=== PATIENT | female | born 1975 | race Caucasian/White ===

== ENCOUNTER 2016-08-03 09:35 | Emergency (ER) | payer OTHER ==
[~2016-08-03] VITALS: Ht 162.6 cm; Wt 83.5 kg
[2016-08-03] MEDS ORDERED: ALBU17IN INH (10:00)
[2016-08-03] MEDS ORDERED: IBUP600T26 PO (10:00)
[2016-08-03] MEDS ORDERED: CETI10TA PO (10:00)
[2016-08-03] MEDS ORDERED: PERCOCET 5MG/325MG TAB PO ONE (10:30)
[2016-08-03] MEDS ORDERED: IBUPROFEN 400 MG TAB PO ONE (10:30)
[2016-08-03] MEDS ORDERED: ONDANSETRON 4 MG ORAL DISINTEGRATING TAB (S0181) PO ONE (11:00)
--- NOTE | 2016-08-03 11:23 | REP ---
Clinical: Trauma. Technique: AP, lateral, bilateral oblique views of the lumbosacral spine. Comparison: 08/07/2007. Findings: Alignment and lordosis maintained. There is no evidence for acute fracture / compression injury or subluxation. Moderate to advanced degenerative disc osteophyte complex at the L5-S1 level may be slightly progressive since prior examination. Impression: No acute fracture / compression injury or subluxation. Advanced focal degenerative changes at the L5-S1 level. Signed by Adeel Clemons MD 08/03/2016 11:14 A
[2016-08-03] MEDS ORDERED: AZIT250T3 PO (11:43)
[2016-08-03] MEDS ORDERED: IBUP800T23 PO (11:44)
[2016-08-03] MEDS ORDERED: PERC5TAB6 PO (11:45)
[2016-08-03] MEDS ORDERED: AZITHROMYCIN 250 MG TAB PO ONE (12:00)
[2016-08-03] MEDS ORDERED: BACT800T5 PO (12:04)
[2016-08-03 12:05] VITALS: BP 146/82
== END 2016-08-03 12:21 | disposition home or self-care (01) ==
LOC: M ED 10:15
DX: J02.0 Streptococcal pharyngitis (principal); M54.5 Low back pain; M51.87 Other intervertebral disc disorders, lumbosacral region; K04.7 Periapical abscess without sinus; K08.89 Other specified disorders of teeth and supporting structures; K08.539 Fractured dental restorative material, unspecified; F17.200 Nicotine dependence, unspecified, uncomplicated; Z88.5 Allergy status to narcotic agent; Z88.0 Allergy status to penicillin; Z88.8 Allergy status to other drugs, medicaments and biological substances

== ENCOUNTER 2016-10-22 13:09 | Emergency (ER) | payer MEDICAID, OTHER, SELFPAY ==
[~2016-10-22] VITALS: Ht 163.8 cm; Wt 77.6 kg
[~2016-10-22 13:09] MED LIST: ALBU17IN INH; AZIT250T3 PO; BACT800T5 PO; CETI10TA PO; IBUP600T26 PO; IBUP800T23 PO; PERC5TAB6 PO
[2016-10-22 13:10] VITALS: BP 136/80
[2016-10-22] MEDS ORDERED: CLEO300C2 PO (14:28)
[2016-10-22] MEDS ORDERED: TYLE325T5 PO (14:28)
[2016-10-22] MEDS ORDERED: NAPROXEN 250 MG TAB PO ONE (14:30)
[2016-10-22] MEDS ORDERED: CLINDAMYCIN 150 MG CAP PO ONE (14:30)
== END 2016-10-22 14:40 | disposition home or self-care (01) ==
LOC: M ED 14:03
DX: S30.0XXA Contusion of lower back and pelvis, initial encounter (principal); W07.XXXA Fall from chair, initial encounter; Y92.89 Other specified places as the place of occurrence of the external cause; Y93.89 Activity, other specified; Y99.9 Unspecified external cause status; K04.7 Periapical abscess without sinus; J45.909 Unspecified asthma, uncomplicated; F17.200 Nicotine dependence, unspecified, uncomplicated; Z90.49 Acquired absence of other specified parts of digestive tract; Z88.0 Allergy status to penicillin; Z88.5 Allergy status to narcotic agent; Z88.8 Allergy status to other drugs, medicaments and biological substances

== ENCOUNTER 2016-10-24 22:12 | Emergency (ER) | payer MEDICAID, OTHER, SELFPAY ==
[~2016-10-24] VITALS: Ht 162.6 cm; Wt 75.7 kg
[~2016-10-24 22:12] MED LIST changes: +CLEO300C2 PO; +TYLE325T5 PO
[2016-10-24 22:14] VITALS: BP 142/79
== END 2016-10-25 01:00 | disposition left against medical advice (07) ==
LOC: M ED 23:18
DX: Z53.29 Procedure and treatment not carried out because of patient's decision for other reasons (principal)

== ENCOUNTER → 2016-10-28 | Outpatient (CLI) | payer SELFPAY | LOC: M OUTALCOH 13:13 | PROVIDERS: ATTEND Psychiatry & Neurology Psychiatry | DX: Z13.9 Encounter for screening, unspecified (principal); F11.20 Opioid dependence, uncomplicated ==

== ENCOUNTER 2016-11-10 16:30 | Outpatient (RCR) | payer MEDICAID, SELFPAY ==
[~2016-11-10 16:30] MED LIST changes: +AZIT-12 PO; -AZIT250T3 PO; +IBUP-1022 PO; +IBUP1TAB7 PO; -IBUP600T26 PO; -IBUP800T23 PO; +PERC5TAB12 PO; -PERC5TAB6 PO
[2016-11-14] MEDS ORDERED: KEFL500C17 PO (16:08)
== END 2016-11-13 | disposition home or self-care (01) ==
LOC: M OUTALCOH 16:30
PROVIDERS: ATTEND Psychiatry & Neurology Psychiatry
DX: F11.20 Opioid dependence, uncomplicated (principal)

== ENCOUNTER 2016-11-14 15:53 | Emergency (ER) | payer MEDICAID, OTHER ==
[~2016-11-14] VITALS: Ht 162.6 cm; Wt 87.2 kg
[2016-11-14 15:53] VITALS: BP 140/82
[2016-11-14] MEDS ORDERED: KEFL500C17 PO (16:08)
== END 2016-11-14 16:19 | disposition home or self-care (01) ==
LOC: M ED 15:53
DX: K02.9 Dental caries, unspecified (principal); Z88.0 Allergy status to penicillin; Z88.5 Allergy status to narcotic agent; Z88.8 Allergy status to other drugs, medicaments and biological substances

== ENCOUNTER 2016-11-26 11:00 | Outpatient (RCR) | payer MEDICAID ==
[~2016-11-26 11:00] MED LIST changes: +KEFL500C17 PO
== END 2016-12-14 ==
LOC: M OUTALCOH 11:00
PROVIDERS: ATTEND Psychiatry & Neurology Psychiatry
DX: F11.20 Opioid dependence, uncomplicated (principal)

== ENCOUNTER 2017-01-28 18:25 | Emergency (ER) | payer MEDICAID, OTHER ==
[~2017-01-28] VITALS: Ht 162.6 cm; Wt 90.0 kg
[2017-01-28] MEDS ORDERED: SUBO8MIS SL (18:49)
[2017-01-28] MEDS ORDERED: LEXA5TAB13 PO (18:49)
[2017-01-28] MEDS ORDERED: GABA-282 PO (18:49)
[2017-01-28] MEDS ORDERED: AZITHROMYCIN 250 MG TAB PO ONE (20:30)
[2017-01-28] MEDS ORDERED: IPRATROPIUM 0.5MG/ALBUTEROL 2.5MG INH SOL UD 3ML (DUONEB)(J7620) NEB ONE (20:30)
[2017-01-28] MEDS ORDERED: predniSONE 20 MG TAB PO ONE (20:30)
[2017-01-28] MEDS ORDERED: ALBUTEROL SULFATE 2.5 MG/0.5 ML INH NEB SOLN NEB ONE (20:30)
[2017-01-28] MEDS ORDERED: ZITHTAB PO (21:30)
[2017-01-28] MEDS ORDERED: PRED10TA2 PO (21:30)
[2017-01-28] MEDS ORDERED: ALBU17IN INH (21:30)
[2017-01-28] MEDS ORDERED: ALBUTEROL 90 MCG/ACT 8GM HFA INHALER INH ONE (21:45)
[2017-01-28 22:07] VITALS: BP 135/72
--- NOTE | 2017-01-29 09:42 | REP ---
Clinical: Cough . Comparison: None . Technique: PA and lateral. Findings: The mediastinum and cardiac silhouette are normal. The lung muñoz are clear and without acute consolidation, effusion, or pneumothorax. The skeletal structures are intact and normal. Impression: 1. No acute cardiopulmonary process. Signed by Adeel Clemons MD 01/29/2017 08:10 A
== END 2017-01-28 22:09 | disposition home or self-care (01) ==
LOC: M ED 18:25
DX: J20.9 Acute bronchitis, unspecified (principal); J45.909 Unspecified asthma, uncomplicated; R07.89 Other chest pain; R05 Cough; K21.9 Gastro-esophageal reflux disease without esophagitis; F32.9 Major depressive disorder, single episode, unspecified; Z87.891 Personal history of nicotine dependence; Z79.899 Other long term (current) drug therapy; Z88.5 Allergy status to narcotic agent; Z88.0 Allergy status to penicillin; Z88.8 Allergy status to other drugs, medicaments and biological substances

== ENCOUNTER 2017-03-28 00:46 | Emergency (ER) | payer OTHER ==
[~2017-03-28] VITALS: Ht 162.6 cm; Wt 82.7 kg
[~2017-03-28 00:46] MED LIST changes: +GABA-282 PO; +LEXA5TAB13 PO; +PRED10TA2 PO; +SUBO8MIS SL; +ZITHTAB PO
[2017-03-28 00:54] VITALS: BP 131/75
[2017-03-28] MEDS ORDERED: ADDE15CA3 PO (01:00)
[2017-03-28] MEDS ORDERED: BACT800T5 PO (01:24)
[2017-03-28] MEDS ORDERED: LIDO1SOL7 MT (01:24)
[2017-03-28] MEDS ORDERED: LIDOCAINE VISCOUS 2% SOLN 15ML UDC MT ONE (01:30)
[2017-03-28] MEDS ORDERED: BACTRIM 160MG/800MG DS TAB PO ONE (01:30)
== END 2017-03-28 01:41 | disposition home or self-care (01) ==
LOC: M ED 00:46
DX: S02.5XXA Fracture of tooth (traumatic), initial encounter for closed fracture (principal); K04.7 Periapical abscess without sinus; K02.9 Dental caries, unspecified; K08.89 Other specified disorders of teeth and supporting structures; X58.XXXA Exposure to other specified factors, initial encounter; Y92.9 Unspecified place or not applicable; Y93.9 Activity, unspecified; Y99.9 Unspecified external cause status; K44.9 Diaphragmatic hernia without obstruction or gangrene; F17.200 Nicotine dependence, unspecified, uncomplicated; Z79.899 Other long term (current) drug therapy; Z88.5 Allergy status to narcotic agent; Z88.0 Allergy status to penicillin; Z88.8 Allergy status to other drugs, medicaments and biological substances

== ENCOUNTER → 2017-03-30 | Outpatient (REF) | payer OTHER, MEDICAID ==
[~2017-03-30] MED LIST changes: +ADDE15CA3 PO; +LIDO1SOL7 MT
[2017-03-30 19:50] LABS: BASO # 0.1 10^3/uL (0.0-0.2); BASO % 1.1 % (0.0-1.0); EOS # 0.6 10^3/uL (0.0-0.50); EOS % 7.3 % (0.0-3.0); IMMATURE GRANULOCYTE % 0.6 % (0-0); LYMPH # 2.8 10^3/uL (1.5-4.5); LYMPH % 34.3 % (24.0-44.0); MEAN CORPUSCULAR HEMOGLOBIN 30.3 pg (27.0-33.0); MEAN CORPUSCULAR VOLUME 97.7 fl (80.0-96.0); MONO # 0.8 10^3/uL (0.0-0.8); MONO % 9.7 % (0.0-5.0); NEUTROPHILS # 3.9 10^3/uL (1.8-7.7); PLATELET COUNT, AUTOMATED 267 10^3/uL (150-450); RED CELL DISTRIBUTION WIDTH 13.4 % (11.5-14.5); WHITE BLOOD COUNT 8.3 10^3/uL (4.0-10.0)
[2017-03-30 19:51] LABS: ALBUMIN 3.6 GM/DL (3.2-5.2); ALBUMIN/GLOBULIN RATIO 1.09 (1.00-1.93); ALKALINE PHOSPHATASE 63 U/L (45-117); ALT/SGPT 24 U/L (12-78); ANION GAP 3 MEQ/L (8-16); AST/SGOT 24 U/L (7-37); BILIRUBIN,TOTAL 0.2 MG/DL (0.2-1.0); BLOOD UREA NITROGEN 5 MG/DL (7-18); CALCIUM LEVEL 9.7 MG/DL (8.5-10.1); CARBON DIOXIDE LEVEL 33 MEQ/L (21-32); CHLORIDE LEVEL 102 MEQ/L (98-107); CHOLESTEROL LEVEL 244 MG/DL (<200); CREATININE FOR GFR 0.64 MG/DL (0.55-1.02); GLOMERULAR FILTRATION RATE > 60.0 (>58); GLUCOSE, FASTING 79 MG/DL (70-105); POTASSIUM SERUM 4.3 MEQ/L (3.5-5.1); SODIUM LEVEL 138 MEQ/L (136-145); TOTAL PROTEIN 6.9 GM/DL (6.4-8.2); TRIGLYCERIDES LEVEL 99 MG/DL (<150)
== END ==
LOC: M LAB REF 17:32
PROVIDERS: ATTEND Family Medicine Addiction Medicine
DX: F41.8 Other specified anxiety disorders (principal)

== ENCOUNTER 2017-03-31 19:29 | Emergency (ER) | payer MEDICAID, OTHER ==
[~2017-03-31] VITALS: Ht 162.6 cm; Wt 82.7 kg
[2017-03-31] MEDS ORDERED: PERCOCET 5MG/325MG TAB As Ordered ONE (22:45)
[2017-03-31] MEDS ORDERED: PERCOCET 5MG/325MG TAB PO ONE (22:45)
--- NOTE | 2017-03-31 23:30 | REPUSA ---
CLINICAL HISTORY: Edema. COMMENTS: Real time sonography with duplex doppler of the extremities bilaterally was performed with attention to the major deep venous structures. Evaluation reveals the common femoral, superficial femoral and popliteal veins bilaterally to be comp letely compressible without intraluminal thrombus. There is normal spontaneous phasic flow and augmen tation in all deep veins. The greater saphenous/common femoral vein junctions are patent bilaterally. IMPRESSION: No evidence of DVT in the lower extremities bilaterally. Thank you for your kind referral of this patient.
[2017-04-01] VITALS: BP 133/58
--- NOTE | 2017-04-01 08:18 | REP ---
Clinical: Cough and shortness of breath . Comparison: 01/28/2017 . Technique: PA and lateral. Findings: The mediastinum and cardiac silhouette are normal. The lung muñoz are clear and without acute consolidation, effusion, or pneumothorax. The skeletal structures are intact and normal. Impression: 1. No acute cardiopulmonary process. Signed by Adeel Clemons MD 04/01/2017 08:09 A
== END 2017-04-01 | disposition home or self-care (01) ==
LOC: M ED 19:29
DX: R60.0 Localized edema (principal); J45.909 Unspecified asthma, uncomplicated; F90.9 Attention-deficit hyperactivity disorder, unspecified type; F17.200 Nicotine dependence, unspecified, uncomplicated; Z79.899 Other long term (current) drug therapy; Z88.5 Allergy status to narcotic agent; Z88.0 Allergy status to penicillin; Z88.8 Allergy status to other drugs, medicaments and biological substances

== ENCOUNTER → 2017-06-25 | Outpatient (CLI) | payer OTHER ==
[2017-06-25 14:05] LABS: HEMATOCRIT 40.5 % (36.0-47.0); HEMOGLOBIN 13.6 g/dl (12.0-16.0); MEAN CORPUSCULAR HEMOGLOBIN 30.8 pg (27.0-33.0); MEAN CORPUSCULAR HGB CONC 33.6 g/dl (32.0-36.5); MEAN CORPUSCULAR VOLUME 91.6 fl (80.0-96.0); PLATELET COUNT, AUTOMATED 237 10^3/uL (150-450); RED BLOOD COUNT 4.42 10^6/uL (4.00-5.40); RED CELL DISTRIBUTION WIDTH 13.3 % (11.5-14.5); WHITE BLOOD COUNT 12.3 10^3/uL (4.0-10.0)
[2017-06-25 14:31] LABS: ALBUMIN 3.7 GM/DL (3.2-5.2); ALBUMIN/GLOBULIN RATIO 1.12 (1.00-1.93); ALKALINE PHOSPHATASE 68 U/L (45-117); ALT/SGPT 14 U/L (12-78); ANION GAP 6 MEQ/L (8-16); AST/SGOT 16 U/L (7-37); BILIRUBIN,TOTAL 0.5 MG/DL (0.2-1.0); BLOOD UREA NITROGEN 6 MG/DL (7-18); CALCIUM LEVEL 9.5 MG/DL (8.5-10.1); CARBON DIOXIDE LEVEL 32 MEQ/L (21-32); CHLORIDE LEVEL 102 MEQ/L (98-107); CREATININE FOR GFR 0.67 MG/DL (0.55-1.30); GLOMERULAR FILTRATION RATE > 60.0 (>58); GLUCOSE, FASTING 43 MG/DL (70-100); POTASSIUM SERUM 3.8 MEQ/L (3.5-5.1); SODIUM LEVEL 140 MEQ/L (136-145)
[2017-06-25 14:47] LABS: HEPATITIS B SURFACE ANTIGEN NEGATIVE (NEGATIVE)
[2017-06-25 15:16] LABS: HIV 1&2 SCREEN CENTAUR NEGATIVE (NEGATIVE)
[2017-06-25 16:01] LABS: CHLAMYDIA DNA AMPLIFICATION NEGATIVE (NEGATIVE); GC DNA AMPLIFICATION NEGATIVE (NEGATIVE)
== END ==
LOC: M LAB 13:10
DX: F11.20 Opioid dependence, uncomplicated (principal)
CPT/HCPCS: 93005

== ENCOUNTER 2018-01-02 13:30 | Emergency (ER) | payer OTHER ==
[2018-01-02] MEDS: MORPHINE 4 MG/ML 1ML VIAL/SYRINGE (J2270) IV ×2 (14:33)
[2018-01-02] MEDS: NS 1,000 ML IV ×2 (14:33)
[2018-01-02] MEDS: ONDANSETRON 4MG/2ML VIAL (J2405) IV ×2 (14:33)
[2018-01-02 14:50] LABS: HEMATOCRIT 43.4 % (36.0-47.0); HEMOGLOBIN 14.5 g/dl (12.0-15.5); MEAN CORPUSCULAR HGB CONC 33.4 g/dl (32.0-36.5); MEAN CORPUSCULAR VOLUME 89.9 fl (80.0-96.0); PLATELET COUNT, AUTOMATED 344 10^3/uL (150-450); RED BLOOD COUNT 4.83 10^6/uL (4.00-5.40); RED CELL DISTRIBUTION WIDTH 13.4 % (11.5-14.5); WHITE BLOOD COUNT 11.7 10^3/uL (4.0-10.0)
[2018-01-02 14:52] LABS: ADD MANUAL DIFFER YES; DIFF SLIDE NUMBER 137; POSITIVE DIFF POS FLAG
[2018-01-02 14:55] LABS: KETONE, URINE AUTO RFX NEGATIVE (NEGATIVE); LEUKOCYTE ESTERASE UR AUTO RFX NEGATIVE (NEGATIVE); MUCUS, URINE RFX SMALL (NEGATIVE); NITRITE, URINE AUTO RFX NEGATIVE (NEGATIVE); RBC, URINE AUTO RFX 1 /HPF (0-3); SPECIFIC GRAVITY UR AUTO RFX 1.009 (1.002-1.035); SQUAM EPITHELIAL CELL UR AURFX 0 /HPF (0-6); WBC, URINE AUTO RFX 1 /HPF (0-3)
[2018-01-02 15:11] LABS: ALBUMIN 4.2 GM/DL (3.2-5.2); ALBUMIN/GLOBULIN RATIO 1.14 (1.00-1.93); ALKALINE PHOSPHATASE 62 U/L (45-117); ALT/SGPT 22 U/L (12-78); ANION GAP 6 MEQ/L (8-16); AST/SGOT 15 U/L (7-37); BILIRUBIN,DIRECT 0.2 MG/DL (0.0-0.2); BILIRUBIN,TOTAL 0.7 MG/DL (0.2-1.0); BLOOD UREA NITROGEN 6 MG/DL (7-18); CALCIUM LEVEL 9.8 MG/DL (8.5-10.1); CARBON DIOXIDE LEVEL 31 MEQ/L (21-32); CHLORIDE LEVEL 103 MEQ/L (98-107); GLOMERULAR FILTRATION RATE > 60.0 (>58); GLUCOSE, FASTING 92 MG/DL (70-100); LIPASE 176 U/L (73-393); POTASSIUM SERUM 3.3 MEQ/L (3.5-5.1); SODIUM LEVEL 140 MEQ/L (136-145); TOTAL PROTEIN 7.9 GM/DL (6.4-8.2)
[2018-01-02] MEDS ORDERED: ISOVUE-370 76% 100ML VIAL (Q9967) As Ordered ×2 (15:16)
[2018-01-02 15:24] LABS: BASOPHILS 1 % (0-4); EOSINOPHILS 4 % (0-5); LYMPHOCYTES 40 % (16-52); MONOCYTES 7 % (0-8); NEUTROPHILS 48 % (35-75)
[2018-01-02 15:25] LABS: PLATELET ESTIMATE NORMAL (NORMAL)
[2018-01-02] MEDS: CIPROFLOXACIN 500 MG TAB PO ×2 (16:33)
[2018-01-02] MEDS: metroNIDAZOLE (FLAGYL) 500 MG TAB PO ×2 (16:33)
== END 2018-01-02 16:51 | disposition home or self-care (01) ==
LOC: M ED 13:30
DX: K52.9 Noninfective gastroenteritis and colitis, unspecified (principal); J45.909 Unspecified asthma, uncomplicated; K44.9 Diaphragmatic hernia without obstruction or gangrene; K21.9 Gastro-esophageal reflux disease without esophagitis; D64.9 Anemia, unspecified; F41.9 Anxiety disorder, unspecified; F32.9 Major depressive disorder, single episode, unspecified; F90.9 Attention-deficit hyperactivity disorder, unspecified type; Z72.0 Tobacco use; Z79.899 Other long term (current) drug therapy; Z88.5 Allergy status to narcotic agent; Z88.0 Allergy status to penicillin; Z88.8 Allergy status to other drugs, medicaments and biological substances
CPT/HCPCS: J2270

== ENCOUNTER 2018-06-16 12:07 | Emergency (ER) | payer MEDICAID, OTHER ==
[~2018-06-16] VITALS: Ht 154.9 cm; Wt 85.0 kg
[~2018-06-16 12:07] MED LIST changes: +CIPR-249 PO; +DICL75TA PO; +FLAG500T PO; -GABA-282 PO; +GABA-843 PO; +MIRA0.5T PO; +OXYC1TAB23 PO; +VYVA70CA3 PO; +ZOFR4TAB14 PO
[2018-06-16] MEDS ORDERED: TRAZ1TAB14 PO ×2 (12:16)
[2018-06-16] MEDS ORDERED: NORCO, ANEXSIA 5/325MG TABLET (HYDROcodone/ACETAMINOPHEN) PO ONE (13:30)
[2018-06-16] MEDS ORDERED: NORCOTAB PO (13:35)
[2018-06-16] MEDS ORDERED: MAGICMW SSP (13:36)
[2018-06-16 13:41] VITALS: BP 136/73
== END 2018-06-16 13:42 | disposition home or self-care (01) ==
LOC: M ED 12:07
DX: K04.7 Periapical abscess without sinus (principal); J45.909 Unspecified asthma, uncomplicated; F33.9 Major depressive disorder, recurrent, unspecified; F41.9 Anxiety disorder, unspecified; F90.9 Attention-deficit hyperactivity disorder, unspecified type; K21.9 Gastro-esophageal reflux disease without esophagitis; Z79.899 Other long term (current) drug therapy; Z88.0 Allergy status to penicillin; Z88.5 Allergy status to narcotic agent; Z88.8 Allergy status to other drugs, medicaments and biological substances; F17.210 Nicotine dependence, cigarettes, uncomplicated

== ENCOUNTER 2019-01-24 04:11 | Emergency (ER) | payer MEDICAID ==
[~2019-01-24] VITALS: Ht 162.6 cm; Wt 94.1 kg
[~2019-01-24 04:11] MED LIST changes: +HYDR-3715 PO; -LIDO1SOL7 MT; +LIDO1SOL8 MT; +MAGICMW SSP; +TRAZ1TAB14 PO
[2019-01-24] MEDS ORDERED: ONDANSETRON 4 MG ORAL DISINTEGRATING TAB (Q0162 PER 1MG) PO ONE (05:00)
[2019-01-24 05:05] LABS: BASO # 0.1 10^3/uL (0.0-0.2); BASO % 0.7 % (0.0-1.0); EOS # 0.2 10^3/uL (0.0-0.5); EOS % 2.8 % (0.0-3.0); HEMATOCRIT 38.5 % (36.0-47.0); HEMOGLOBIN 13.3 g/dl (12.0-15.5); LYMPH # 2.7 10^3/uL (1.5-5.0); LYMPH % 36.6 % (24.0-44.0); MEAN CORPUSCULAR HEMOGLOBIN 30.7 pg (27.0-33.0); MEAN CORPUSCULAR HGB CONC 34.5 g/dl (32.0-36.5); MEAN CORPUSCULAR VOLUME 88.9 fl (80.0-96.0); MONO # 0.6 10^3/uL (0.0-0.8); MONO % 7.6 % (0.0-5.0); NEUTROPHILS # 3.9 10^3/uL (1.5-8.5); PLATELET COUNT, AUTOMATED 238 10^3/uL (150-450); RED BLOOD COUNT 4.33 10^6/uL (4.00-5.40); WHITE BLOOD COUNT 7.5 10^3/uL (4.0-10.0)
[2019-01-24 05:10] LABS: APPEARANCE, URINE CLOUDY (CLEAR); BACTERIA, URINE AUTO 3+ (NEGATIVE); BILIRUBIN, URINE AUTO NEGATIVE (NEGATIVE); BLOOD, URINE BLOOD NEGATIVE (NEGATIVE); COLOR, URINE RED (YELLOW); GLUCOSE, URINE (UA) AUTO NEGATIVE (NEGATIVE); KETONE, URINE AUTO NEGATIVE (NEGATIVE); LEUKOCYTE ESTERASE, URINE AUTO 2+ (NEGATIVE); MUCUS, URINE SMALL (NEGATIVE); NITRITE, URINE AUTO NEGATIVE (NEGATIVE); PROTEIN, URINE AUTO NEGATIVE (NEGATIVE); RBC, URINE AUTO 7 /HPF (0-3); SPECIFIC GRAVITY URINE AUTO 1.015 (1.002-1.035); SQUAMOUS EPITHELIAL CELL UR AU 14 /HPF (0-6); UROBILINOGEN, URINE AUTO 0.2 mg/dL (0.0-2.0); WBC, URINE AUTO 16 /HPF (0-3)
[2019-01-24 05:16] LABS: ALBUMIN 3.8 GM/DL (3.2-5.2); ALT/SGPT 16 U/L (12-78); BILIRUBIN,DIRECT 0.1 MG/DL (0.0-0.2); BILIRUBIN,TOTAL 0.4 MG/DL (0.2-1.0); BLOOD UREA NITROGEN 15 MG/DL (7-18); CALCIUM LEVEL 9.2 MG/DL (8.5-10.1); CARBON DIOXIDE LEVEL 22 MEQ/L (21-32); CHLORIDE LEVEL 107 MEQ/L (98-107); CREATININE FOR GFR 0.84 MG/DL (0.55-1.30); GLOMERULAR FILTRATION RATE > 60.0 (>58); GLUCOSE, FASTING 114 MG/DL (70-100); LIPASE 81 U/L (73-393); POTASSIUM SERUM 3.4 MEQ/L (3.5-5.1); SODIUM LEVEL 140 MEQ/L (136-145)
[2019-01-24] MEDS ORDERED: BACTRIM 160MG/800MG DS TAB PO ONE (06:15)
[2019-01-24] MEDS ORDERED: KETOROLAC 30 MG/ML VIAL (J1885) IV ONE (06:15)
[2019-01-24] MEDS ORDERED: BACT800T5 PO (08:53)
--- NOTE | 2019-01-24 09:00 | REP ---
PELVIC SONOGRAPHY: HISTORY: Pain. Rule out torsion. Comparison CT study is from earlier this date. SONOGRAPHIC FINDINGS: Transabdominal scanning is performed. The patient declined transvaginal scanning. Visualized bladder davis are smooth. There is a small quantity of free fluid adjacent to the left ovary. Left ovary does not appear malpositioned. It is not enlarged. Left ovary dimensions are 3.3 x 2.7 x 2.2 cm. Calculated volume 10.3 mL. Resistive index by Doppler is 0.51. Doppler flow is present. Uterine dimensions are normal at 8.3 x 3.7 x 4.9 cm. Endometrial echo is 1.1 cm thick, centrally placed. The right ovary is also normal in position, size, and appearance with dimensions of 3.2 x 2.0 x 2.5 cm, calculated volume 8.9 mL, Doppler flow normal with resistive index 0.53. IMPRESSION: Small quantity of free fluid noted. Ovaries normal in position and appearance bilaterally. Normal uterus. Doppler flow is present in both ovaries. Electronically Signed by Greyson Winters MD 01/24/2019 09:12 A
--- NOTE | 2019-01-24 09:10 | REP ---
CT abdomen and pelvis without contrast: Repeat dictation: History: Right-sided colicky pain. Preliminary report is provided at time of exam by [facility]. Comparison study: January 02, 2018. CT findings: Preliminary digital facility coordinator radiograph shows clips in the right upper quadrant of the abdomen and two tubal ligation clamps in the right pelvis. There is gas and stool in the colon. The lung bases are clear on axial CT images. The liver and spleen are normal in size homogeneous in texture. No adrenal lesion is seen on either side. No abnormalities noted in the pancreas. Kidneys show no evidence of hydronephrosis or intrarenal calculus. There is evidence of an undigested tablet in the proximal small bowel. No small or large bowel dilation is seen. No obstructive lesion is seen. Normal appendix is seen in the right lower quadrant. The right tubal ligation clamp appears adjacent the right ovary in the right adnexa. No tubal ligation clamps visible in the left adnexa. This clamp appears to be adjacent to the tip of the cecum in the right lower quadrant having apparently migrated from the left adnexa where was is seen January 02, 2018. There is a small quantity of fluid in the cul-de-sac. No uterine abnormality is noted. The left ovary is difficult to visualize adjacent to the fluid. Urinary bladder is intact. There is no evidence of free intraperitoneal air. Bone window settings demonstrate fairly advanced degenerative disc disease at L5-S1 with diffuse disc bulging. Impression: Small quantity of free fluid in the cul-de-sac uncertain etiology. Normal appendix. Findings consistent with migrated tubal ligation clamp from the left pelvis in the right lower quadrant. This is not expected to be of any clinical consequence. Electronically Signed by Greyson Winters MD 01/24/2019 09:14 A
[2019-01-24 09:13] VITALS: BP 129/81
--- NOTE | 2019-01-31 12:59 | ED PDOC ---
Post-Departure Follow-Up eleonora lucia faxed formal report of ct abd/p for fu Karthik Packer MD Jan 31, 2019 12:59
== END 2019-01-24 09:16 | disposition home or self-care (01) ==
LOC: M ED 04:11
DX: N39.0 Urinary tract infection, site not specified (principal); F11.20 Opioid dependence, uncomplicated; F17.200 Nicotine dependence, unspecified, uncomplicated; Z79.51 Long term (current) use of inhaled steroids; Z79.899 Other long term (current) drug therapy; Z88.0 Allergy status to penicillin; Z88.5 Allergy status to narcotic agent; Z88.8 Allergy status to other drugs, medicaments and biological substances
CPT/HCPCS: 74176; 76856; 80048; 80076; 81001; 83690; 85025; 87088; 93976; 96374; 99283; J1885; Q0162

== ENCOUNTER 2019-02-19 14:01 | Emergency (ER) | payer MEDICAID ==
[~2019-02-19] VITALS: Ht 162.6 cm; Wt 95.2 kg
[2019-02-19] MEDS ORDERED: BUPR1TAB56 PO (14:24)
[2019-02-19] MEDS ORDERED: KETOROLAC 30 MG/ML VIAL (J1885) IV ONE (15:15)
[2019-02-19] MEDS ORDERED: ISOVUE-370 76% 100ML VIAL (Q9967) As Ordered ONE (16:32)
[2019-02-19 16:41] LABS: BASO # 0.1 10^3/uL (0.0-0.2); BASO % 0.5 % (0.0-1.0); EOS # 0.5 10^3/uL (0.0-0.5); HEMATOCRIT 38.7 % (36.0-47.0); HEMOGLOBIN 12.4 g/dl (12.0-15.5); LYMPH # 2.8 10^3/uL (1.5-5.0); LYMPH % 21.7 % (24.0-44.0); MEAN CORPUSCULAR HEMOGLOBIN 30.9 pg (27.0-33.0); MEAN CORPUSCULAR VOLUME 96.5 fl (80.0-96.0); MONO # 1.2 10^3/uL (0.0-0.8); MONO % 8.9 % (0.0-5.0); NEUTROPHILS # 8.3 10^3/uL (1.5-8.5); NEUTROPHILS % 64.4 % (36.0-66.0); PLATELET COUNT, AUTOMATED 206 10^3/uL (150-450); RED BLOOD COUNT 4.01 10^6/uL (4.00-5.40); WHITE BLOOD COUNT 12.9 10^3/uL (4.0-10.0)
[2019-02-19] MEDS ORDERED: CLINDAMYCIN 900 MG in IV 1 EA IV ONE (16:45)
[2019-02-19] MEDS ORDERED: ONDANSETRON 4 MG ORAL DISINTEGRATING TAB (Q0162 PER 1MG) PO ONE (17:30)
[2019-02-19] MEDS ORDERED: PERCOCET 5MG/325MG TAB PO ONE (17:30)
[2019-02-19] MEDS ORDERED: CLINDAMYCIN 150 MG CAP PO ONE (19:15)
[2019-02-19] MEDS ORDERED: OXYCODONE/APAP 5MG/325MG(BULK FOR ED) 1 TABLET PO ONE (19:15)
[2019-02-19] MEDS ORDERED: methylPREDNISolone INJ 125 MG/2 ML VIAL (J2930) IV ONE (19:15)
[2019-02-19] MEDS ORDERED: PRED20TA PO (19:16)
[2019-02-19] MEDS ORDERED: CLEO300C2 PO (19:16)
[2019-02-19] MEDS ORDERED: OXYC1TAB23 PO (19:18)
[2019-02-19 19:34] VITALS: BP 110/58
[2019-02-19] MEDS ORDERED: VENTAER INH (19:56)
--- NOTE | 2019-02-20 12:28 | REP ---
CT SOFT TISSUE NECK STUDY WITH IV CONTRAST: HISTORY: Left mandibular swelling. Preliminary report is provided at the time of exam by [facility]. CT CONTRAST DOSE: 75 mL of intravenous Isovue [address] FINDINGS: Preliminary workforce planner images are unremarkable. There is a moderate amount of soft tissue swelling about the left buccal and perimandibular region. No soft tissue abscess is appreciated. There is some thickening of the platysma in the submandibular region. No neck masses seen. Epiglottis and aryepiglottic folds are intact. No airway lesion is appreciated. Tonsillar and peritonsillar soft tissues are unremarkable. No intraorbital lesion is seen. There is mucosal thickening in the inferior aspect of the left maxillary sinus. There are multiple carious maxillary teeth. No bony mandibular lesion is appreciated. The lung apices are clear. IMPRESSION: Moderate soft tissue swelling and edema in the left buccal and mandibular region. No evidence of abscess seen. Electronically Signed by Greyson Winters MD 02/20/2019 03:05 P
== END 2019-02-19 20:19 | disposition home or self-care (01) ==
LOC: M ED 14:01
DX: K02.9 Dental caries, unspecified (principal); K04.7 Periapical abscess without sinus; R22.0 Localized swelling, mass and lump, head; K05.6 Periodontal disease, unspecified; K21.9 Gastro-esophageal reflux disease without esophagitis; J45.909 Unspecified asthma, uncomplicated; F17.200 Nicotine dependence, unspecified, uncomplicated; Z79.899 Other long term (current) drug therapy; Z88.0 Allergy status to penicillin; Z88.5 Allergy status to narcotic agent; Z88.8 Allergy status to other drugs, medicaments and biological substances
CPT/HCPCS: 70491; 80047; 85025; 96365; 96375; 99284; J1885; J2930; Q0162; Q9967

== ENCOUNTER → 2019-03-15 | Outpatient (CLI) | payer MEDICAID ==
[~2019-03-15] MED LIST changes: +BUPR1TAB56 PO; +PRED20TA PO; +VENTAER INH
[2019-03-15 16:27] LABS: HEMATOCRIT 42.7 % (36.0-47.0); HEMOGLOBIN 13.4 g/dl (12.0-15.5); MEAN CORPUSCULAR HEMOGLOBIN 30.2 pg (27.0-33.0); MEAN CORPUSCULAR HGB CONC 31.4 g/dl (32.0-36.5); MEAN CORPUSCULAR VOLUME 96.2 fl (80.0-96.0); PLATELET COUNT, AUTOMATED 263 10^3/uL (150-450); RED BLOOD COUNT 4.44 10^6/uL (4.00-5.40); WHITE BLOOD COUNT 7.9 10^3/uL (4.0-10.0)
[2019-03-15 16:51] LABS: ALBUMIN 3.3 GM/DL (3.2-5.2); ALT/SGPT 14 U/L (12-78); BILIRUBIN,TOTAL 0.4 MG/DL (0.2-1.0); BLOOD UREA NITROGEN 7 MG/DL (7-18); CALCIUM LEVEL 9.6 MG/DL (8.5-10.1); CARBON DIOXIDE LEVEL 32 MEQ/L (21-32); CHLORIDE LEVEL 104 MEQ/L (98-107); CREATININE FOR GFR 0.84 MG/DL (0.55-1.30); GLOMERULAR FILTRATION RATE > 60.0 (>58); GLUCOSE, FASTING 108 MG/DL (70-100); SODIUM LEVEL 140 MEQ/L (136-145); TOTAL PROTEIN 6.7 GM/DL (6.4-8.2)
[2019-03-15 17:35] LABS: HIV 1&2 SCREEN CENTAUR NEGATIVE (NEGATIVE)
[2019-03-15 19:43] LABS: HCG, SERUM QUALITATIVE NEGATIVE (NEGATIVE)
[2019-03-15 22:44] LABS: CHLAMYDIA DNA AMPLIFICATION NEGATIVE (NEGATIVE); GC DNA AMPLIFICATION NEGATIVE (NEGATIVE)
--- NOTE | 2019-03-15 22:50 | ECGEPIP ---
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
[2019-03-17 09:37] LABS: HEPATITIS B SURFACE ANTIGEN NEGATIVE (NEGATIVE)
== END ==
LOC: M LAB 14:55
PROVIDERS: ATTEND Family Medicine
DX: F11.20 Opioid dependence, uncomplicated (principal)

== ENCOUNTER 2019-09-18 13:51 | Emergency (ER) | payer MEDICAID, OTHER ==
[~2019-09-18] VITALS: Ht 162.6 cm; Wt 80.0 kg
[~2019-09-18 13:51] MED LIST changes: -LIDO1SOL8 MT; +LIDO2SOL17 MT
[2019-09-18] MEDS ORDERED: NS 1,000 ML IV ONE (14:45)
[2019-09-18] MEDS ORDERED: SUBO8MIS (14:47)
[2019-09-18 14:50] LABS: BASO # 0.1 10^3/uL (0.0-0.2); BASO % 0.7 % (0.0-1.0); EOS # 0.2 10^3/uL (0.0-0.5); EOS % 2.7 % (0.0-3.0); HEMATOCRIT 37.9 % (36.0-47.0); HEMOGLOBIN 12.3 g/dl (12.0-15.5); LYMPH # 2.7 10^3/uL (1.5-5.0); LYMPH % 31.6 % (24.0-44.0); MEAN CORPUSCULAR HEMOGLOBIN 30.5 pg (27.0-33.0); MEAN CORPUSCULAR HGB CONC 32.5 g/dl (32.0-36.5); MONO # 0.7 10^3/uL (0.0-0.8); MONO % 8.4 % (0.0-5.0); NEUTROPHILS # 4.8 10^3/uL (1.5-8.5); NEUTROPHILS % 56.2 % (36.0-66.0); PLATELET COUNT, AUTOMATED 285 10^3/uL (150-450); RED BLOOD COUNT 4.03 10^6/uL (4.00-5.40); WHITE BLOOD COUNT 8.5 10^3/uL (4.0-10.0)
[2019-09-18 15:22] LABS: HCG, SERUM QUALITATIVE NEGATIVE (NEGATIVE)
[2019-09-18 15:35] LABS: ACETAMINOPHEN LEVEL < 2.0 UG/ML (10.0-30.0); ALBUMIN 3.5 GM/DL (3.2-5.2); ALT/SGPT 20 U/L (12-78); BILIRUBIN,DIRECT < 0.1 MG/DL (0.0-0.2); BILIRUBIN,TOTAL 0.3 MG/DL (0.2-1.0); BLOOD UREA NITROGEN 11 MG/DL (7-18); CALCIUM LEVEL 9.1 MG/DL (8.5-10.1); CARBON DIOXIDE LEVEL 30 MEQ/L (21-32); CHLORIDE LEVEL 105 MEQ/L (98-107); CK-MB VALUE MASS 2.2 NG/ML (<3.6); CPK CREATINE PHOSPHOKINASE 126 U/L (26-192); CREATININE FOR GFR 0.76 MG/DL (0.55-1.30); ETHYL ALCOHOL (ETHANOL) < 0.003 % (0.000-0.010); GLOMERULAR FILTRATION RATE > 60.0 (>58); GLUCOSE, FASTING 81 MG/DL (70-100); MB/CK RELATIVE INDEX 1.75 (< OR =4); POTASSIUM SERUM 3.5 MEQ/L (3.5-5.1); SALICYLATE LEVEL < 1.7 MG/DL (5.0-30.0); SODIUM LEVEL 139 MEQ/L (136-145); TOTAL PROTEIN 6.8 GM/DL (6.4-8.2); TROPONIN I < 0.02 NG/ML (< 0.10)
[2019-09-18] MEDS ORDERED: LIDOCAINE 2% 5ML JELLY UROJET TOP ONE (16:15)
[2019-09-18 17:26] LABS: AMPHETAMINES LEVEL URINE POSITIVE (NEGATIVE); BARBITURATES URINE NEGATIVE (NEGATIVE); BENZODIAZEPINES URINE NEGATIVE (NEGATIVE); CANNABINOIDS URINE NEGATIVE (NEGATIVE); COCAINE METABOLITE URINE NEGATIVE (NEGATIVE); METHADONE URINE NEGATIVE (NEGATIVE); OPIATES URINE NEGATIVE (NEGATIVE); PHENCYCLIDINE URINE NEGATIVE (NEGATIVE)
--- NOTE | 2019-09-18 18:41 | ECGEPIP ---
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
[2019-09-18 18:49] VITALS: BP 136/71
== END 2019-09-18 18:54 | disposition home or self-care (01) ==
LOC: M ED 13:51
DX: F15.120 Other stimulant abuse with intoxication, uncomplicated (principal); I11.9 Hypertensive heart disease without heart failure; E11.9 Type 2 diabetes mellitus without complications; F99 Mental disorder, not otherwise specified; J45.909 Unspecified asthma, uncomplicated; F17.200 Nicotine dependence, unspecified, uncomplicated; Z88.0 Allergy status to penicillin; Z88.5 Allergy status to narcotic agent; Z88.8 Allergy status to other drugs, medicaments and biological substances; Z79.899 Other long term (current) drug therapy; Z79.891 Long term (current) use of opiate analgesic
CPT/HCPCS: 36415; 80048; 80076; 80307; 82550; 82553; 84443; 84703; 85025; 93005; 93041; 94760; 99285; G0480

== ENCOUNTER 2019-11-15 19:11 | Emergency (ER) | payer MEDICAID, OTHER ==
[~2019-11-15] VITALS: Ht 162.6 cm; Wt 77.7 kg
[~2019-11-15 19:11] MED LIST changes: +SUBO8MIS
[2019-11-15] MEDS ORDERED: GABA600T4 (19:23)
[2019-11-15] MEDS ORDERED: PARO5TAB (19:23)
[2019-11-15] MEDS ORDERED: GABA600T4 PO (20:34)
[2019-11-15] MEDS ORDERED: PARO5TAB PO (20:34)
[2019-11-15 20:51] VITALS: BP 145/84
== END 2019-11-15 20:52 | disposition home or self-care (01) ==
LOC: M ED 19:11
DX: Z76.0 Encounter for issue of repeat prescription (principal); F32.9 Major depressive disorder, single episode, unspecified; Z88.0 Allergy status to penicillin; Z88.5 Allergy status to narcotic agent; Z88.8 Allergy status to other drugs, medicaments and biological substances; Z79.899 Other long term (current) drug therapy

== ENCOUNTER → 2019-12-20 | Emergency (ER) | payer OTHER ==
[~2019-12-20] MED LIST changes: +GABA600T4; +GABA600T4 PO; +PARO5TAB; +PARO5TAB PO
== END | disposition home or self-care (01) ==
LOC: M ED 19:57
DX: Z76.0 Encounter for issue of repeat prescription (principal); F31.9 Bipolar disorder, unspecified; F41.9 Anxiety disorder, unspecified; F11.10 Opioid abuse, uncomplicated; F17.200 Nicotine dependence, unspecified, uncomplicated; Z88.6 Allergy status to analgesic agent; Z88.0 Allergy status to penicillin; Z88.8 Allergy status to other drugs, medicaments and biological substances

== ENCOUNTER → 2020-01-11 | Outpatient (CLI) | payer OTHER | LOC: M LABSMTC 12:27 | PROVIDERS: ATTEND Family Medicine | DX: Z20.828 Contact with and (suspected) exposure to other viral communicable diseases (principal) | CPT/HCPCS: C9803; U0003 ==

== ENCOUNTER → 2020-03-27 | Outpatient (REF) | payer OTHER ==
[2020-03-27 17:29] LABS: BASO # 0.1 10^3/uL (0.0-0.2); BASO % 0.8 % (0.0-1.0); EOS # 0.2 10^3/uL (0.0-0.5); EOS % 2.8 % (0.0-3.0); HEMATOCRIT 39.9 % (36.0-47.0); HEMOGLOBIN 12.8 g/dl (12.0-15.5); LYMPH # 2.4 10^3/uL (1.5-5.0); LYMPH % 33.1 % (24.0-44.0); MEAN CORPUSCULAR HGB CONC 32.1 g/dl (32.0-36.5); MEAN CORPUSCULAR VOLUME 93.4 fl (80.0-96.0); MONO # 0.7 10^3/uL (0.0-0.8); MONO % 9.5 % (0.0-5.0); NEUTROPHILS # 3.8 10^3/uL (1.5-8.5); NEUTROPHILS % 53.5 % (36.0-66.0); PLATELET COUNT, AUTOMATED 276 10^3/uL (150-450); RED BLOOD COUNT 4.27 10^6/uL (4.00-5.40); WHITE BLOOD COUNT 7.2 10^3/uL (4.0-10.0)
[2020-03-27 17:42] LABS: ALBUMIN 4.1 GM/DL (3.2-5.2); ALT/SGPT 12 U/L (12-78); BILIRUBIN,TOTAL 0.4 MG/DL (0.2-1.0); BLOOD UREA NITROGEN 18 MG/DL (7-18); CARBON DIOXIDE LEVEL 27 MEQ/L (21-32); CHLORIDE LEVEL 104 MEQ/L (98-107); CHOLESTEROL LEVEL 223 MG/DL (<200); CHOLESTEROL RISK RATIO 2.477 (<5); CREATININE FOR GFR 0.86 MG/DL (0.55-1.30); GLOMERULAR FILTRATION RATE > 60.0 (>58); GLUCOSE, FASTING 117 MG/DL (70-100); HDL CHOLESTEROL 90 MG/DL (>40); LDL CHOLESTEROL 124 MG/DL (<100); NON-HDL-C 133 MG/DL; SODIUM LEVEL 139 MEQ/L (136-145); TOTAL 25(OH) VITAMIN D 11.7 NG/ML (30.0-100.0); TOTAL PROTEIN 7.3 GM/DL (6.4-8.2); TRIGLYCERIDES LEVEL 46 MG/DL (<150)
== END ==
LOC: M LAB REF 16:44
PROVIDERS: ATTEND Physician Assistant
DX: R53.83 Other fatigue (principal); E55.9 Vitamin D deficiency, unspecified; Z13.220 Encounter for screening for lipoid disorders

== ENCOUNTER 2020-04-19 22:23 | Emergency (ER) | payer OTHER ==
[~2020-04-19] VITALS: Ht 165.1 cm; Wt 77.7 kg
[2020-04-19] MEDS ORDERED: CETI-24 PO (22:53)
[2020-04-19] MEDS ORDERED: BUPR300T92 PO (22:53)
[2020-04-19] MEDS ORDERED: MELO7.5T35 PO (22:53)
--- NOTE | 2020-04-20 00:13 | REPVR ---
PROCEDURE INFORMATION: Exam: XR Right Shoulder Exam date and time: 04/19/2020 11:26 PM Age: 44 years old Clinical indication: Other: Right shoulder pain; Additional info: Right shoulder pop/pain TECHNIQUE: Imaging protocol: XR Right shoulder. Views: 2 or more views. COMPARISON: CR Shoulder, complete 10/19/2017 2:40 PM FINDINGS: Bones/joints: Chronic appearing deformity of the lateral clavicle and widening of the acromioclavicular joint is unchanged. AC joint alignment is normal. Normal glenohumeral alignment. No fracture or malalignment. Soft tissues: Normal. IMPRESSION: 1. Stable chronic changes in the AC joint. 2. No fracture or malalignment. Electronically signed by: Héctor Palma On 04/20/2020 00:14:09 AM
[2020-04-20] MEDS ORDERED: ROBA750T4 PO (00:59)
[2020-04-20] MEDS ORDERED: methocarbamoL 750 MG TAB PO ONE (01:00)
[2020-04-20 01:10] VITALS: BP 136/82
== END 2020-04-20 01:12 | disposition home or self-care (01) ==
LOC: M ED 22:23
DX: M25.511 Pain in right shoulder (principal); Z79.51 Long term (current) use of inhaled steroids; Z79.899 Other long term (current) drug therapy; Z88.0 Allergy status to penicillin; Z88.6 Allergy status to analgesic agent; Z88.8 Allergy status to other drugs, medicaments and biological substances

== ENCOUNTER → 2020-06-25 | Outpatient (CLI) | payer OTHER ==
[~2020-06-25] MED LIST changes: +BUPR300T92 PO; +CETI-24 PO; +GABA-282 PO; -GABA-843 PO; +ISOVUE-300 61% 50ML VIAL As Ordered ONE; +MELO7.5T35 PO; +ROBA750T4 PO
== END ==
LOC: M RADPRO 08:18
PROVIDERS: ATTEND Physician Assistant Surgical
DX: S43.491D Other sprain of right shoulder joint, subsequent encounter (principal); Z53.8 Procedure and treatment not carried out for other reasons

== ENCOUNTER 2021-03-19 03:20 | Emergency (ER) | payer OTHER ==
[~2021-03-19] VITALS: Ht 162.6 cm; Wt 75.5 kg
[~2021-03-19 03:20] MED LIST changes: -ISOVUE-300 61% 50ML VIAL As Ordered ONE
[2021-03-19 03:22] VITALS: BP 158/86
--- OUTSIDE RECORDS SUMMARY | 2021-03-19 03:31 | CCD ---
Author Author [facility] Organization [facility] Address Unknown Phone Unavailable Care Team Providers Care Scoreboard Operator Name Role Phone Ev March, PALuzmaria Unavailable [facility]availabl e [facility], [facility]-C Unavailable Unavailabl e Fish, Ev [facility], PA-C Unavailable Unavailabl e Fish, Ev [facility], PA-C Unavailable Unavailabl e [facility], PA-C Unavailable Unavailabl e Fish, Ev [facility], PA-C Unavailable Unavailabl e Fish, Ev FELIPE, PA-C Unavailable Unavailabl e Fish, Ev [facility], PA-C Unavailable Unavailabl e [facility], PA-C Unavailable Unavailabl e Fish, Ev [facility], PA-C Unavailable Unavailabl e Fish, [facility], PA-C Unavailable Unavailabl e Fish, [facility], PA-C Unavailable Unavailabl e Fish, [facility], PA-C Unavailable Unavailabl e Fish, [facility], PA-C Unavailable Unavailabl e Fish, [facility], PA-C Unavailable Unavailabl e Fish, [facility], PA-C Unavailable Unavailabl e Fish, [facility], PA-C Unavailable Unavailabl e Fish, [facility], PA-C Unavailable Unavailabl e Fish, [facility], PA-C Unavailable Unavailabl e Fish, [facility], PA-C Unavailable Unavailabl e Fish, [facility], PA-C Unavailable Unavailabl e Fish, [facility], PA-C Unavailable Unavailabl e Fish, [facility], PA-C Unavailable Unavailabl e Fish, [facility], PA-C Unavailable Unavailabl e Fish, [facility], PA-C Unavailable Unavailabl e Fish, [facility], PA-C Unavailable Unavailabl e Fish, [facility], PA-C Unavailable Unavailabl e Fish, [facility], PA-C Unavailable Unavailabl e Fish, [facility], PA-C Unavailable Unavailabl e Fish, [facility], PA-C Unavailable Unavailabl e Fish, [facility], PA-C Unavailable Unavailabl e Fish, [facility], PA-C Unavailable Unavailabl e Fish, [facility], PA-C Unavailable Unavailabl e Fish, [facility], PA-C Unavailable Unavailabl e Fish, [facility], PA-C Unavailable Unavailabl e Fish, [facility], PA-C Unavailable Unavailabl e Carlos [facility] Unavailable Geovani Greenfield MD Unavailable Unavailable Geovani Greenfield MD Unavailable Unavailable Geovani Greenfield MD Unavailable Unavailable Geovani Greenfield MD Unavailable Unavailable Geovani Greenfield MD Unavailable Unavailable Geovani Greenfield MD Unavailable Unavailable Geovani Greenfield MD Unavailable Unavailable Geovani Greenfield MD Unavailable Unavailable Geovani Greenfield MD Unavailable Unavailable Geovani Greenfield MD Unavailable Unavailable Geovani Greenfield MD Unavailable Unavailable Geovani Greenfield MD Unavailable Unavailable Geovani Greenfield MD Unavailable Unavailable Geovani Greenfield MD Unavailable Unavailable Geovani Greenfield MD Unavailable Unavailable Geovani Greenfield MD Unavailable Unavailable Geovani Greenfield MD Unavailable Unavailable Geovani Greenfield MD Unavailable Unavailable Geovani Greenfield MD Unavailable Unavailable Geovani Greenfield MD Unavailable Unavailable Geovani Greenfield MD Unavailable Unavailable Geovani Greenfield MD Unavailable Unavailable Geovani Greenfield MD Unavailable Unavailable Geovani Greenfield MD Unavailable Unavailable Geovani Greenfield MD Unavailable Unavailable Geovani Greenfield MD Unavailable Unavailable Geovani Greenfield MD Unavailable Unavailable Geovani Greenfield MD Unavailable Unavailable Geovani Greenfield MD Unavailable Unavailable Geovani Greenfield MD Unavailable Unavailable Geovani Greenfield MD Unavailable Unavailable Geovani Greenfield MD Unavailable Unavailable Geovani Greenfield MD Unavailable Unavailable Geovani Greenfield MD Unavailable Unavailable Geovani Greenfield MD Unavailable Unavailable Geovani Greenfield MD Unavailable Unavailable Geovani Greenfield MD Unavailable Unavailable Geovani Greenfield MD Unavailable Unavailable Geovani Greenfield MD Unavailable Unavailable Geovani Greenfield MD Unavailable Unavailable Geovani Greenfield MD Unavailable Unavailable Geovani Greenfield MD Unavailable Unavailable Geovani Greenfield MD Unavailable Unavailable Geovani Greenfield MD Unavailable Unavailable Geovani Greenfield MD Unavailable Unavailable Geovani Greenfield MD Unavailable Unavailable Geovani Greenfield MD Unavailable Unavailable Geovani Greenfield MD Unavailable Unavailable Geovani Greenfield MD Unavailable Unavailable Geovani Greenfield MD Unavailable Unavailable Geovani Greenfield MD Unavailable Unavailable Geovani Greenfield MD Unavailable Unavailable Geovani Greenfield MD Unavailable Unavailable Geovani Greenfield MD Unavailable Unavailable Geovani Greenfield MD Unavailable Unavailable Geovani Greenfield MD Unavailable Unavailable Geovnai Greenfield MD Unavailable Unavailable Geovani Greenfield MD Unavailable Unavailable Geovani Greenfield MD Unavailable Unavailable Geovani Greenfield MD Unavailable Unavailable Geovani Greenfield MD Unavailable Unavailable Geovani Greenfield MD Unavailable Unavailable Geovani Greenfield MD Unavailable Unavailable Geovani Greenfield MD Unavailable Unavailable Geovani Greenfield MD Unavailable Unavailable Geovani Greenfield MD Unavailable Unavailable Geovani Greenfield MD Unavailable Unavailable Geovani Greenfield MD Unavailable Unavailable Geovani Greenfield MD Unavailable Unavailable Geovani Greenfield MD Unavailable Unavailable Geovani Greenfield MD Unavailable Unavailable Geovani Greenfield MD Unavailable Unavailable Geovani Greenfield MD Unavailable Unavailable Geovani Greenfield MD Unavailable Unavailable Geovani Greenfield MD Unavailable Unavailable Geovani Greenfield MD Unavailable Unavailable Geovani Greenfield MD Unavailable Unavailable Geovani Greenfield MD Unavailable Unavailable Geovani Greenfield MD Unavailable Unavailable Geovani Greenfield MD Unavailable Unavailable Geovani Greenfield MD Unavailable Unavailable Geovani Greenfield MD Unavailable Unavailable Geovani Greenfield MD Unavailable Unavailable Geovani Greenfield MD Unavailable Unavailable Geovani Greenfield MD Unavailable Unavailable Geovani Greenfield MD Unavailable Unavailable Geovani Greenfield MD Unavailable Unavailable Geovani Greenfield MD Unavailable Unavailable Geovani Greenfield MD Unavailable Unavailable Geovani Greenfield MD Unavailable Unavailable Geovani Greenfield MD Unavailable Unavailable Geovani Greenfield MD Unavailable Unavailable Geovani Greenfield MD Unavailable Unavailable Scordo, M Janessa PA Unavailable Unavailable Scordo, M Janessa PA Unavailable Unavailable Scordo, M Janessa PA Unavailable Unavailable Scordo, M Janessa PA Unavailable Unavailable Scordo, M Janessa PA Unavailable Unavailable Scordo, M Janessa PA Unavailable Unavailable Scordo, M Janessa PA Unavailable Unavailable Scordo, M Janessa PA Unavailable Unavailable Scordo, M Janessa PA Unavailable Unavailable Scordo, M Janessa PA Unavailable Unavailable Scordo, M Janessa PA Unavailable Unavailable Scordo, M Janessa PA Unavailable Unavailable Scordo, M Janessa PA Unavailable Unavailable Scordo, M Janessa PA Unavailable Unavailable Scordo, M Janessa PA Unavailable Unavailable Scordo, M Janessa PA Unavailable Unavailable Scordo, M Janessa PA Unavailable Unavailable Scordo, M Janessa PA Unavailable Unavailable Scordo, M Janessa PA Unavailable Unavailable Scordo, M Janessa PA Unavailable Unavailable Scordo, M Janessa PA Unavailable Unavailable Scordo, M Janessa PA Unavailable Unavailable Scordo, M Janessa PA Unavailable Unavailable Scordo, M Janessa PA Unavailable Unavailable Scordo, M Janessa PA Unavailable Unavailable Scordo, M Janessa PA Unavailable Unavailable Scordo, M Janessa PA Unavailable Unavailable Scordo, M Janessa PA Unavailable Unavailable Scordo, M Janessa PA Unavailable Unavailable Scordo, M Janessa PA Unavailable Unavailable Scordo, M Janessa PA Unavailable Unavailable Scordo, M Janessa PA Unavailable Unavailable Scordo, M Janessa PA Unavailable Unavailable Scordo, M Janessa PA Unavailable Unavailable Scordo, M Janessa PA Unavailable Unavailable Scordo, M Janessa PA Unavailable Unavailable Scordo, M Janessa PA Unavailable Unavailable Scordo, M Janessa PA Unavailable Unavailable Scordo, M Janessa PA Unavailable Unavailable Scordo, M Janessa PA Unavailable Unavailable Scordo, M Janessa PA Unavailable Unavailable Scordo, M Janessa PA Unavailable Unavailable Scordo, Monique Riddle PA Unavailable Unavailable Scordo, Monique Riddle PA Unavailable Unavailable Scordo, Monique Riddle PA Unavailable Unavailable Scordo, Monique Riddle PA Unavailable Unavailable Scordo, Monique Riddle PA Unavailable Unavailable Re-disclosure Warning The records that you are about to access may contain information from federally-assisted alcohol or drug abuse programs. If such information is present, then the following federally mandated warning applies: This information has been disclosed to you from records protected by federal confidentiality rules (42 CFR part 2). The federal rules prohibit you from making any further disclosure of this information unless further disclosure is expressly permitted by the written consent of the person to whom it pertains or as otherwise permitted by 42 CFR part 2. A general authorization for the release of medical or other information is NOT sufficient for this purpose. The Federal rules restrict any use of the information to criminally investigate or prosecute any alcohol or drug abuse patient.The records that you are about to access may contain highly sensitive health information, the redisclosure of which is protected by Article 27-F of the [facility] Public Health law. If you continue you may have access to information: Regarding HIV / AIDS; Provided by facilities licensed or operated by the [facility] Office of Mental Health; or Provided by the [facility] Office for People With Developmental Disabilities. If such information is present, then the following [facility] mandated warning applies: This information has been disclosed to you from confidential records which are protected by state law. State law prohibits you from making any further disclosure of this information without the specific written consent of the person to whom it pertains, or as otherwise permitted by law. Any unauthorized further disclosure in violation of state law may result in a fine or mcc sentence or both. A general authorization for the release of medical or other information is NOT sufficient authorization for further disc losure. Allergies and Adverse Reactions Type Description Substance Reaction Status Data Source(s ) Food allergy GLUTEN GLUTEN [facility] Propensity to adverse reactions to substance tramadol 24 HR tramadol hydrochloride 300 MG Extended Release Oral Capsule difficulty breathing Active [facility] ([facility]) Propensity to adverse reactions to substance Phenergan (prom ethazine) Promethazine Hydrochloride 25 MG/ML Injectable Solution [Phenergan] Active [facility] ([facility]) Family History Family Member Name Family Member Gender Family Member Status Date o f Status Description Data Source(s) Unknown Male Problem [facility] ([facility]) Unknown Unknown Problem [facility] ([facility] Encounters Encounter Providers Location Date Indications Data Source(s ) Outpatient Attender: Jannet FELIPE PA-C Physical Therapy 07/16/2020 02:00:00 PM EST [facility] ([facility]) Outpatient Attender: Jannet FELIPE PA-C Physical Therapy 05/29/2020 07:30:00 AM EST [facility] ([facility]) OFFICE OUTPATIENT NEW 30 MINUTES Attender: Jannet FELIPE PA-C Physical Therapy 03/27/2020 09:00:00 AM EST [facility] ([facility]) Janessa Sow PA-C: [address] [place] [phone], Ph. Attender: Janessa SANDERS - [facility] Medical 03/27/2020 12:00:00 AM EST [facility] ([facility]) Outpatient Attender: Juan Ramon Greenfield MD 03/06/2020 12:00:09 AM EDT [facility] Outpatient Attender: Juan Ramon Greenfield MD 03/05/2020 03:23:00 PM EDT [facility] Outpatient Attender: Juan Ramon Greenfield MD 03/05/2020 01:38:01 PM EDT [facility] Outpatient Attender: Juan Ramon Greenfield MD 03/05/2020 01:37:01 PM EDT [facility] Outpatient Attender: Juan Ramon Greenfield MD 02/28/2020 03:04:00 PM EDT [facility] Outpatient Attender: Juan Ramon Greenfield MD 02/28/2020 02:42:00 PM EDT [facility] Outpatient Attender: Juan Ramon Greenfield MD 02/28/2020 01:25:01 PM EDT [facility] Extended Individual Psychotherapy - 45 min Attender: Saji Lopez [facility] 02/13/2020 03:30:00 AM EDT - 02/13/2020 03:30:00 AM EDT [facility] ([facility]) Attender: Saji Lopez 02/13/2020 12:00:00 AM EDT [facility] ([facility]) Extended Individual Psychotherapy - 45 min Attender: Carlosdeshira Lopez [facility] 02/02/2020 12:15:00 PM EDT - 02/02/2020 12:15:00 PM EDT [facility] ([facility]) Attender: Saji Lopez 02/02/2020 12:00:00 AM EDT [facility] ([facility]) Medications Medication Brand Name Start Date Product Form Dose Route Admi nistrative Instructions Pharmacy Instructions Status Indications Reaction Description Data Source(s) Diazepam 5 MG Oral Tablet [Valium] Valium 05/22/2020 12:00:00 AM EST active [facility] ([facility]) 90 mcg/actuation 04/29/2020 12:00:00 AM EST HFA aerosol inha ler 8 INHALE 1-2 PUFFS BY MOUTH EVERY 4 HOURS NEEDED FOR WHEEZING INHALE 1-2 PUFFS BY MOUTH EVERY 4 HOURS NEEDED FOR WHEEZING SOLD: 04/30/2020 [facility] 30 mg/5 mL 04/29/2020 12:00:00 AM EST suspension,extended re l 12 hr 100 TAKE 5ML BY MOUTH EVERY 12 HOURS FOR 10 DAYS TAKE 5ML BY MOUTH EVERY 12 HOURS FOR 10 DAYS SOLD: 04/30/2020 [facility] 20 mg 04/29/2020 12:00:00 AM EST tablet 10 TAKE ONE TABLET BY MOUTH TWO TIMES A DAY FOR 5 DAYS TAKE ONE TABLET BY MOUTH TWO TIMES A DAY FOR 5 DAYS SO LD: 04/30/2020 [facility] Medrol Medrol 03/27/2020 12:00:00 AM EST active [facility] ([facility]) paroxetine 10 mg tablet TAKE ONE TABLET BY MOUTH EVERY DAY [id number] completed paroxetine hydrochloride 10 MG O ral Tablet [facility] ([facility]) 24 HR venlafaxine 75 MG Extended Release Oral Capsule venlafaxine ER 75 mg capsule,extended release 24 hr TAKE ONE CAPSULE BY MOUTH EVERY MORNING venlafaxine ER 75 mg capsule,extended release 24 hr TAKE ONE CAPSULE BY MOUTH EVERY MORNING completed 24 HR venlafaxine 75 MG Extended Release Oral Capsule [facility] ([facility]) gabapentin 300 MG Oral Capsule gabapenti n 300 mg capsule TAKE TWO CAPSULES BY MOUTH THREE TIMES DAILY gabapentin 300 mg capsule TAKE TWO CAPSU LES BY MOUTH THREE TIMES DAILY completed yessica pentin 300 MG Oral Capsule [facility] ([facility]) gabapentin 600 MG Oral Tablet gabapentin 600 mg tablet TAKE ONE TABLET BY MOUTH THREE TIMES A DAY gabapentin 600 mg tablet TAKE ONE TABLET BY MOUTH THREE TIMES A DAY completed gabapentin 600 M G Oral Tablet [facility] ([facility]) Trazodone Hydrochloride 100 MG Oral Tabl et trazodone 100 mg tablet TAKE TWO TABLETS BY MOUTH AT BEDTIME trazodone 100 mg tablet TAKE TWO TABLETS BY MOUTH AT BEDTIME completed trazodone hyd rochloride 100 MG Oral Tablet [facility] ([facility]) Pramipexole dihydrochloride 0.5 MG Oral Tablet pramipexole 0.5 mg tablet TAKE ONE TABLET BY MOUTH AT BEDTIME pramipexole 0.5 mg tablet TAKE ONE TABLE T BY MOUTH AT BEDTIME completed pramipexole dihydrochloride 0.5 MG Oral Tablet [facility] ([facility]) meloxicam 7.5 MG Oral Tablet meloxicam 7 .5 mg tablet TAKE ONE TABLET BY MOUTH TWICE DAILY NEEDED FOR PAIN meloxicam 7.5 mg tablet TAKE ONE TABLET BY MOUTH TWICE DAILY NEEDED FOR PAIN complet ed meloxicam 7.5 MG Oral Tablet [facility] ([facility]) Escitalopram 10 MG Oral Tablet escitalop jeremiah 10 mg tablet TAKE ONE TABLET BY MOUTH EVERY MORNING DIRECTED FOR 14 DAYS THEN STOP escitalopram 10 mg tablet TAKE ONE TABLET BY MOUTH EVERY MORNING DIRECTED FOR 14 DAYS THEN STOP completed escitalopram 10 MG O ral Tablet [facility] ([facility]) Escitalopram 20 MG Oral Tablet escitalop jeremiah 20 mg tablet TAKE ONE TABLET BY MOUTH EVERY MORNING escitalopram 20 mg tablet TAKE ONE TABLE T BY MOUTH EVERY MORNING completed escitalopram 2 0 MG Oral Tablet [facility] ([facility]) 12 HR Bupropion Hydrochloride 200 MG Ext ended Release Oral Tablet bupropion HCl SR 200 mg tablet,12 hr sustained-release TAKE ONE TABLET BY MOUTH ONCE DAILY bupropion HCl SR 200 mg tablet,12 hr sustained-release TAKE ONE TABLET BY MOUTH ONCE DAILY completed 12 HR bupropion hydrochloride 200 MG Extended Release Oral Tablet [facility] ([facility]) Insurance Providers Payer name Policy type / Coverage type Policy ID Covered green party ID Covered green party's relationship to smith Policy Smith Plan Information Hesham Rojo () Workers Compensation [id number] Self [id number] [employer] () Workers Compensation [id number] Self [id number] [place] [employer] Self () Workers Compensation [id number] Self [id number] [facility] Self () Workers Compensation [id number] Self [id number] Medicaid S [id number] S [id number] [facility] Community Plan Commercial [id number] Self [id number] Managed Care - Community Plan [facility] P [id number] S [id number] Medicaid S [id number] Managed Care - Community Plan [facility] P [id number] S [id number] Managed Care - Community Plan [facility] P [id number] S [id number] Managed Care - Community Plan [facility] P [id number] S [id number] Managed Care - [facility] Community Plan P [id number] S [id number] Medicaid P [id number] S [id number] Medicaid S [id number] S [id number] Managed Care - P P [id number] S [id number] [employer] COMMUNITY PLAN [facility] [id number] SP [id number] MEDICAID UNAVAILABLE SP UNAVAILA BLE Medicaid [place] Medigap Part B [id number] Self [id number] [employer] COMMUNITY PLAN XIX [id number] 18 [id number] [facility] [id number] SP [id number] MEDICAID [id number] SP [id number] [facility] Community Plan Health Maintenance Organization (HMO) [id number] Self SELF PAY UNAVAILABLE SP UNAVAILA BLE [facility](MCAID) O [id number] S [id number] [facility] [id number] SP [id number] [facility] HE[facility] O [id number] S [id number] SELF PAY ONLY [id number] SP [id number] MCDHMO [id number] SP [id number] EMEDNY [id number] SP [id number] Managed Care - [facility] P [id number] S [id number] MEDICAID [id number] SP [id number] UN COMMUNITY PLAN MCDO [id number] SP [id number] [facility](MCAID) O [id number] S [id number] UN COMMUNITY PLAN [facility] [id number] SP [id number] Managed Care - Community Plan [facility] P [id number] S [id number] [facility] [id number] SP [id number] [facility] COMMUNITY PLAN [facility] [id number] SP [id number] [facility] [id number] SP [id number] [facility] [id number] SP [id number] Problems, Conditions, and Diagnoses Code Display Name Description Problem Type Effective Dates Data Source(s) 34507950 Allergic rhinitis Allergic Rhinitis Problem 03/27/2020 12:00:00 AM [facility] ([facility]) 719.41 Pain in right shoulder Pain in right shoulder 03/05/2020 01:36:04 PM EDT [facility] V85.24 BMI 28.0-28.9 BMI 28.0-28.9 03/05/2020 01:36:04 PM EDT [facility] 278.02 Overweight Overweight 03/05/2020 01:36:04 PM ED T [facility] F43.23 Adjustment disorder with mixed anxiety a nd depressed mood Adjustment Disorder, With mixed anxiety and depressed mood Condition 2019 12:00:00 AM EDT [facility] ([facility]) [id number] Mass of oral cavity Mass of Oral Cavity Problem 0 05/18/2017 12:00:00 AM EST - 03/27/2020 12:00:00 AM BRIDGETTE ZAVALA ([facility]) [id number] Lower urinary tract finding Lower Urinary Tract Findin g Problem 03/09/2017 12:00:00 AM EDT - 03/27/2020 12:00:00 AM BRIDGETTE ZAVALA ([facility]) [id number] Acquired absence of multiple teeth Acquired Abse nce of Multiple Teeth Problem 07/30/2015 12:00:00 AM EDT - 03/27/2020 12:00:00 AM BRADLY ZAVALA ([facility]) Surgeries/Procedures Procedure Description Date Indications Data Source(s) ARTHROCENTESIS ASPIR&/INJECTION MAJOR JT/BURSA 021 12:00:00 AM EST [facility] ([facility]) RADEX SHOULDER COMPLETE MINIMUM 2 VIEWS 03/27/2020 12: 00:00 AM EST [facility] ([facility]) MAMMO, diagnostic, digital, bilateral 03/27/2020 12:00 :00 AM EST [facility] ([facility]) Extended Individual Psychotherapy - 45 min 02/13/2020 12:00:00 AM EDT - 02/13/2020 12:00:00 AM EDT [facility] ([facility]) Extended Individual Psychotherapy - 45 min 0 12:00:00 AM EDT [facility] ([facility]) Extended Individual Psychotherapy - 45 min 02/02/2020 12:00:00 AM EDT - 02/02/2020 12:00:00 AM EDT [facility] ([facility]) Extended Individual Psychotherapy - 45 min 0 12:00:00 AM EDT [facility] ([facility]) Results ID Date Data Source [id number] 04/29/2020 12:00:00 AM EST [place] Name Value Range Interpretation Code Description Data Elda rce(s) Supporting Document(s) SARS coronavirus 2 RNA [Presence] in Res piratory specimen by ELINOR with probe detection [place] This lab was ordered by Don Paulson and reported by [email or web address]. ID Date Data Source [id number] 02/28/2020 01:44:32 PM EDT [facility] Measurements & CalculationsHeight: 66 inches (5 ft. 6 in.) 167.64 cm Weight: 177 pounds 8 oz. 80.68 kg Body Mass Index (BMI): 28.75BMI Interpretation: OverweightBody Surface Area (BSA): 1.90Weight Management Education Done (Nutrition/Physical Activity)Vital SignsTemperature: 97.0F tympanic Pulse Rate: 87 beats/minuteRespiratory Rate: 18 respirations/minuteBlood Pressure: 120/83 left arm sitting automaticO2 Saturation: 97% sittingVital Signs performed by: Willie Kwan MA, February 28, 2020 1:59 PMInitial Intake Information From: patientRoom #: 12Infectious Disease / Travel ScreeningRecent travel for you or any close contacts? NoHave you had any close contact with anyone diagnosed with or under investigation for COVID-19 (coronavirus)? NoFever? NoRespiratory symptoms: cough, cold, congestion, shortness of breath, difficulty breathing? NoLoss of smell? NoLoss of taste? NoSmoking, Tobacco, Vaping or Smoke Exposure StatusSmoke Status: current every day smokerTobacco Use: YesAdv to Quit: YesDo you vape? NoPassive Smoke Exposure: YesPassive Smoke Exposure comments: selfMenstrual HistoryLast Menstrual Period (LMP): 02/07/2020Healthcare HistorySince your last office visit...Have you been admitted to the hospital? NoHave you been to an emergency room (ER) or urgent care clinic? Yes - [facility] ER (for meds)Emergency room (ER) or urgent care date reported today: 01/10/2020Have you seen another healthcare provider? Yes - [facility] (addiction treatment & counseling)Have you seen a dentist? NoIntake performed by: Willie Kwan MA, February 28, 2020 1:49 PMRate Your HealthIn general, would you say your health is? PoorPain AssessmentAre you currently having any pain which... You would like your provider to address? Yes Affects your activity level? YesDepression Screening - PHQ-2Over the last two weeks, have you... Had little interest or pleasure in doing things? More than half the days Been feeling down, depressed, or hopeless? More than half the days PHQ-2 Score: 4Anxiety Screening - JERONIMO-2Over the last two weeks, have you been... Feeling nervous, anxious, or on edge? More than half the days Unable to stop or control worrying? More than half the days JERONIMO-2 Score: 4Food InsecurityWithin the past year...Did you worry whether your food would run out before you got money to buy more? Never trueWas there a time when the food you bought didn't last and you didn't have money to get more? Never truePatient Learning & Communication Needs Preferred learning style: visualPossible barriers: nonePatient's Language used in visit: YesLanguage: englishAssessment of health literacy: AdequatePatient History Medical History:Herniated DiscsDegenerative DiscsAsthmaADHDNeuropathyCarpal tunnel syndromeAnxietyDepressionGERDHiatal HerniaSurgical History:x-[id number] removal-1994Family History:mother- COPD,emphysemia, high cholesterol, hypertensionFather-lung cancer, diabetesFamily Hx of bipolarSocial/Personal History: Advised to Quit/Tobacco Education: YesChief Complaintfollow-up visit/ R shoulder pain & request referralHistory of Present Illness (HPI)Patient presents for right shoulder pain, chronic and ongoing. Has been taking OTC meds and PT in the past without benefit. Wondering what she can do for this. No recent injury. Does note radicular pain down arm into hands. No weakness. Some intermittent tingling.Transitions of Care InboundProblem ReviewProblem List was reviewed and/or updated during this visit.Medication Reconciliation & ReviewMedication List was reviewed and/or updated during this visit, including review of any euqe-yqh-tboepqg medications, herbal therapies, and/or supplements.Allergy ReviewAllergy List was reviewed and/or updated during this visit.Adult Preventive CareProvider Calculated and Reviewed all Clinical Protocols for patient today. Screening Tobacco Screening: Smoking Status: current every day smoker (02/28/2020) Tobacco Use: Currently (02/28/2020) Advised to Quit: Yes (02/28/2020)Labs/Meds/Other Counseling-Nutrition and Physical Activity:BMI Interpretation: Overweight (02/28/2020) Counseling: Done (02/28/2020) Physical Activity: Done (02/28/2020)Review of Systems Musculoskeletal: Complains of joint pain, other pain-see comments. Denies back pain, leg pain, joint swelling, body aches, muscle aches, muscle cramps, muscle weakness, stiffness, recent injury. Psychiatric: Complains of depression, anxiety, feeling stressed. Denies memory loss, mental disturbance, suicidal ideation, homicidal ideation, hallucinations, paranoia, hearing voices. Physical ExamGeneral Appearance: well nourished, well hydrated, no acute distressRespiratory, Auscultation: clear to auscultation bilaterally; no rales, rhonchi, or wheezesRespiratory, Effort: no intercostal retractions or use of accessory musclesCardiovascular, Auscultation: S1, S2 audible; no murmur, rub, or gallop; RRRUpper Extremity, Right: Right Shoulder: ROM slightly decreased due to pain. Sensation and strength intact. No visible deformity. Orientation: oriented to time, place, and personMood & Affect: anxiousJudgment & Insight: intactCare Management Plan Transitions of CareInboundRate Your HealthIn general, would you say your health is? PoorAssessment & Plan Problems:Added: Overweight (ICD-278.02) (ICD10- E66.3)BMI 28.0-28.9 (ICD-V85.24) (WJF45-U43.28)Pain in right shoulder (ICD- 719.41) (HTB95-L09.511) Assessment: chronic and ongoing. has had PT in the past. would like to see ortho. referral started.Assessed:Mixed anxiety and depressive disorder (ICD-300.4) (HMC02-Y20.8) Assessment: refer to mental health in house. can restart wellbutrin per patient request. discussed risks, benegits, and side effects of medication. discussed supportive care. discussed signs and symptoms that would warrant ED eval.Assessment not SavedNeuropathic pain (GXT25-Y42.2): Medications:WELLBUTRIN XL 150 MG ORAL TABLET EXTENDED RELEASE 24 HOURMELOXICAM 7.5 MG ORAL TABLETSUBOXONE 8-2 MG SUBLINGUAL FILMVENTOLIN HFA 108 (90 BASE) MCG/ACT INHALATION AEROSOL SOLUTIONZYRTEC ALLERGY 10 MG ORAL CAPSULESUBOXONE 8-2 MG SUBLINGUAL FILMMedication Ronna nges:Refilled:VENTOLIN HFA 108 (90 BASE) MCG/ACT INHALATION AEROSOL SOLUTION-two puffs every 4 to 6 hours as needed Qty: 1[Inhalation] Refills: 0 Method: ElectronicNew Prescription:MELOXICAM 7.5 MG ORAL TABLET-1 tablet twice a day as needed for pain with food Qty: 60[Tablet] Refills: 1 Method: ElectronicWELLBUTRIN XL 150 MG ORAL TABLET EXTENDED RELEASE 24 HOUR-1 tablet once a day in the morning Qty: 30[Tablet] Refills: 1 Method: ElectronicRemoved:IBUPROFEN 800 MG ORAL TABLET-One po q8h prn pain. MDD 3., GABAPENTIN 400 MG ORAL CAPSULE-One po tid., LEXAPRO 5 MG ORAL TABLET-take one tab po daily, ADDERALL 15 MG ORAL TABLET-Take once daily by mouthAllergies:PENICILLIN (Critical)TRAMADOL HCL (TRAMADOL HCL TABS) (Critical)CODEINE (Critical)PHENERGAN (Critical)* GLUTEN (Critical)* CATS (Sever e)Orders:Mental Health Consult [CPT-17317] Orthopaedics Consult [CPT-17914] Adult - Ofc Vst, EST, Level III [CPT-92566] Follow-Up Return to clinic: if symptoms persist Medications:WELLBUTRIN XL 150 MG ORAL TABLET EXTENDED RELEASE 24 HOUR (BUPROPION HCL) 1 tablet once a day in the morning #30[Tablet] x 1 Route:ORAL Entered and Authorized by: Janessa FLOWERS Method used: Electronically to [facility]* (retail) [address] [place] [address] Fax: Note to Pharmacy: Route: ORAL; RxID: [id number] 7.5 MG ORAL TABLET (MELOXICAM) 1 tablet twice a day as needed for pain with food #60[Tablet] x 1 Route:ORAL Entered and Authorized by: Janessa FLOWERS Method used: Electronically to [facility]* (retail) [address] [place] [address] Note to Pharmacy: Route: ORAL; RxID: [id number] HFA 108 (90 BASE) MCG/ACT INHALATION AEROSOL SOLUTION (ALBUTEROL SULFATE) two puffs every 4 to 6 hours as needed #1[Inhalation] x 0 Route:INHALATION Entered and Authorized by: Janessa FLOWERS Method used: Electronically to [facility]* (retail) [address] [place] [address] Note to Pharmacy: Route: INH; RxID: [id number] signed by Janessa FLOWERS on 03/05/2020 at 1:36 PM Name Value Range Interpretation Code Description Data Elda rce(s) Supporting Document(s) Procedure Social History Code Duration Value Status Description Data Source(s ) Smoking 02/13/2020 12:00:00 AM EDT Unknown if ever smoked comp leted Unknown if ever smoked [facility] ([facility]) Smoking 02/02/2020 12:00:00 AM EDT Unknown if ever smoked comp leted Unknown if ever smoked [facility] ([facility]) Vital Signs ID Date Data Source UNK Name Value Range Interpretation Code Description Data Source(s) Body mass index (BMI) [Ratio] 31.3 kg/m2 31.3 k g/m2 [facility] ([facility] ) Body temperature 96.9 [degF] 96.9 [degF] [facility] ([facility] ) Body height 62.5 [in_i] 62.5 [in_i] [facility] ([facility]) 5'2.50" Body weight 174.12 [lb_av] 174.12 [lb_av] MEDEN T ([facility] ) Diastolic blood pressure 98 mm[Hg] 98 mm[Hg] SALLY ([facility]) Body height 65.25 [in_i] 65.25 [in_i] [facility] ([facility]) Body mass index (BMI) [Ratio] 29.3 kg/m2 29.3 k g/m2 [facility] ([facility]) Systolic blood pressure 148 mm[Hg] 148 mm[Hg] A THENA ([facility]) Body weight 2836 [oz_av] 2836 [oz_av] [facility] ([facility]) Patient Treatment Plan of Care Planned Activity Planned Date Details Description Data Source (s) 24 HR venlafaxine 75 MG Extended Release Oral Capsule [facility] ([facility]) Trazodone Hydrochloride 100 MG Oral Tablet [facility] ([facility]) Pramipexole dihydrochloride 0.5 MG Oral Tablet [facility] ([facility]) paroxetine 10 mg tablet TAKE ONE TABLET BY MOUTH EVERY DAY [facility] ([facility]) meloxicam 7.5 MG Oral Tablet [facility] ([facility]) gabapentin 600 MG Oral Tablet [facility] ([facility]) gabapentin 300 MG Oral Capsule [facility] ([facility]) Escitalopram 20 MG Oral Tablet [facility] ([facility]) Escitalopram 10 MG Oral Tablet [facility] ([facility]) 12 HR Bupropion Hydrochloride 200 MG Extended Release Oral Tablet [facility] ([facility])
--- OUTSIDE RECORDS SUMMARY | 2021-03-19 05:19 | CCD ---
Author Author [facility] Organization [facility] Address Unknown Phone Unavailable Care Team Providers Care Public Services Librarian Name Role Phone Ev March, PALuzmaria Unavailable Unavailabl e Fish[facility] Unavailable Unavailabl e Fish, Ev Power [facility] Unavailable Unavailabl e Fish, Ev Power [facility] Unavailable Unavailabl e FishEv [facility] Unavailable Unavailabl e Fish, Ev Power [facility] Unavailable Unavailabl e Fish, Ev FELIPE, PA-C Unavailable Unavailabl e Fish, Ev Power [facility] Unavailable Unavailabl e FishEv [facility] Unavailable Unavailabl e Fish, Ev Power [facility] Unavailable Unavailabl e Fish, [facility], PA-C Unavailable Unavailabl e Fish, [facility], PA-C Unavailable Unavailabl e Fish, [facility], PA-C Unavailable Unavailabl e Fish, [facility], PA-C Unavailable Unavailabl e Fish, [facility], PA-C Unavailable Unavailabl e Fish, [facility], PA-C Unavailable Unavailabl e Fish, [facility], PA-C Unavailable Unavailabl e Fish, [facility], PA-C Unavailable Unavailabl e Fish, [facility], PA-C Unavailable Unavailabl e Fish, [facility], PA-C Unavailable Unavailabl e Fish, [facility], PA-C Unavailable Unavailabl e Fish, [facility], PA-C Unavailable Unavailabl e Fish, [facility], PA-C Unavailable Unavailabl e Fish, [facility], PA-C Unavailable Unavailabl e Fish, [facility], PA-C Unavailable Unavailabl e Fish, [facility], PA-C Unavailable Unavailabl e Fish, [facility], PA-C Unavailable Unavailabl e Fish, [facility], PA-C Unavailable Unavailabl e Fish, [facility], PA-C Unavailable Unavailabl e Fish, [facility], PA-C Unavailable Unavailabl e Fish, [facility], PA-C Unavailable Unavailabl e Fish, [facility], PA-C Unavailable Unavailabl e Fish, [facility], PA-C Unavailable Unavailabl e Fish, [facility], PA-C Unavailable Unavailabl e Fish, [facility], PA-C Unavailable Unavailabl e Fish, [facility], PA-C Unavailable Unavailabl e [facility] Un[facility] Geovani Greenfield MD Unavailable Unavailable Geovani [...] is protected by Article 27-F of the [facility] Public Health law. If you continue you may have access to information: Regarding HIV / AIDS; Provided by facilities licensed or operated by the [facility] Office of Mental Health; or Provided by the [facility] Office for People With Developmental Disabilities. If such information is present, then the following [facility] mandated warning applies: This information has been [...] law may result in a fine or half-way sentence or both. A general authorization for the release of medical or other information is NOT sufficient authorization for further disc losure. Allergies and Adverse Reactions Type Description Substance Reaction Status Data Source(s ) Food allergy GLUTEN GLUTEN [facility] Propensity to adverse reactions to substance tramadol 24 HR tramadol hydrochloride 300 MG Extended Release Oral Capsule difficulty breathing Active [facility] ([facility]) Propensity to adverse reactions to substance Phenergan (prom ethazine) Promethazine Hydrochloride 25 MG/ML Injectable Solution [Phenergan] Active [facility] ([facility]) Family History Family Member Name Family Member Gender Family Member Status Date o f Status Description Data Source(s) Unknown Male Problem [facility] ([facility]) Unknown Unknown Problem [facility] ([facility] Encounters Encounter Providers Location Date Indications Data Source(s ) Outpatient Attender: Jannet FELIPE PA-C Physical Therapy 07/16/2020 02:00:00 PM EST [facility] ([facility]) Outpatient Attender: Jannet FELIPE PA-C Physical Therapy 05/29/2020 07:30:00 AM EST [facility] ([facility]) OFFICE OUTPATIENT NEW 30 MINUTES Attender: Jannet FELIPE PA-C Physical Therapy 03/27/2020 09:00:00 AM EST [facility] ([facility]) Janessa Sow PA-C: [address] [place] [phone], Ph. Attender: Janessa [facility] Medical 03/27/2020 12:00:00 AM EST S[facility] ([facility]) Outpatient Attender: Juan Ramon Greenfield MD 03/06/2020 12:00:09 AM EDT [facility] Outpatient Attender: Juan Ramon Greenfield MD 03/05/2020 03:23:00 PM EDT [facility] Outpatient Attender: Juan Ramon Greenfield MD 03/05/2020 01:38:01 PM EDT [facility] Outpatient Attender: Juan Ramon Greenfield MD 03/05/2020 01:37:01 PM EDT [facility] Outpatient Attender: Juan Ramon Greenfield MD 02/28/2020 03:04:00 PM EDT [facility] Outpatient Attender: Juan Ramon Greenfield MD 02/28/2020 02:42:00 PM EDT [facility] Outpatient Attender: Juan Ramon Greenfield MD 02/28/2020 01:25:01 PM EDT [facility] Extended Individual Psychotherapy - 45 min Attender: Saji Lopez [facility] 02/13/2020 03:30:00 AM EDT - 02/13/2020 03:30:00 AM [facility] Attender: Saji Lopez 02/13/2020 12:00:00 AM EDT [facility] ([facility]) Extended Individual Psychotherapy - 45 min Attender: Carlosarshira Lopez [facility] 02/02/2020 12:15:00 PM EDT - 02/02/2020 12:15:00 PM EDT [facility] ([facility]) Attender: Saji Lopez 02/02/2020 12:00:00 AM EDT [facility] ([facility]) Medications Medication Brand Name Start Date Product Form Dose Route Admi nistrative Instructions Pharmacy Instructions Status Indications Reaction Description Data Source(s) Diazepam 5 MG Oral Tablet [Valium] Valium 05/22/2020 12:00:00 AM EST active [facility] ([facility]) 90 mcg/actuation 04/29/2020 12:00:00 [...] Medrol 03/27/2020 12:00:00 AM EST active [facility] ([facility]) paroxetine 10 mg tablet TAKE ONE TABLET BY MOUTH EVERY DAY [id number] completed paroxetine hydrochloride 10 MG O ral Tablet SALLY ([facility]) 24 HR venlafaxine 75 MG Extended Release Oral Capsule venlafaxine ER 75 mg capsule,extended release 24 hr TAKE ONE CAPSULE BY MOUTH EVERY MORNING venlafaxine ER 75 mg capsule,extended release 24 hr TAKE ONE CAPSULE BY MOUTH EVERY MORNING completed 24 HR venlafaxine 75 MG Extended Release Oral Capsule [facility] ([facility]) gabapentin 300 MG Oral Capsule gabapenti n 300 mg capsule TAKE TWO CAPSULES BY MOUTH THREE TIMES DAILY gabapentin 300 mg capsule TAKE TWO CAPSU LES BY MOUTH THREE TIMES DAILY completed yessica pentin 300 MG Oral Capsule [facility] ([facility]) gabapentin 600 MG Oral Tablet gabapentin 600 mg tablet TAKE ONE TABLET BY MOUTH THREE TIMES A DAY gabapentin 600 mg tablet TAKE ONE TABLET BY MOUTH THREE TIMES A DAY completed gabapentin 600 M G Oral Tablet [facility] ([facility]) Trazodone Hydrochloride 100 MG Oral Tabl et trazodone 100 mg tablet TAKE TWO TABLETS BY MOUTH AT BEDTIME trazodone 100 mg tablet TAKE TWO TABLETS BY MOUTH AT BEDTIME completed trazodone hyd rochloride 100 MG Oral Tablet [facility] ([facility]) Pramipexole dihydrochloride 0.5 MG Oral Tablet pramipexole 0.5 mg tablet TAKE ONE TABLET BY MOUTH AT BEDTIME pramipexole 0.5 mg tablet TAKE ONE TABLE T BY MOUTH AT BEDTIME completed pramipexole dihydrochloride 0.5 MG Oral Tablet [facility] ([facility]) meloxicam 7.5 MG Oral Tablet meloxicam 7 .5 mg tablet TAKE ONE TABLET BY MOUTH TWICE DAILY NEEDED FOR PAIN meloxicam 7.5 mg tablet TAKE ONE TABLET BY MOUTH TWICE DAILY NEEDED FOR PAIN complet ed meloxicam 7.5 MG Oral Tablet [facility] ([facility]) Escitalopram 10 MG Oral Tablet escitalop jeremiah 10 mg tablet TAKE ONE TABLET BY MOUTH EVERY MORNING DIRECTED FOR 14 DAYS THEN STOP escitalopram 10 mg tablet TAKE ONE TABLET BY MOUTH EVERY MORNING DIRECTED FOR 14 DAYS THEN STOP completed escitalopram 10 MG O ral Tablet [facility] ([facility]) Escitalopram 20 MG Oral Tablet escitalop jeremiah 20 mg tablet TAKE ONE TABLET BY MOUTH EVERY MORNING escitalopram 20 mg tablet TAKE ONE TABLE T BY MOUTH EVERY MORNING completed escitalopram 2 0 MG Oral Tablet [facility] ([facility]) 12 HR Bupropion Hydrochloride 200 MG Ext ended Release Oral Tablet bupropion HCl SR 200 mg tablet,12 hr sustained-release TAKE ONE TABLET BY MOUTH ONCE DAILY bupropion HCl SR 200 mg tablet,12 hr sustained-release TAKE ONE TABLET BY MOUTH ONCE DAILY completed 12 HR bupropion hydrochloride 200 MG Extended Release Oral Tablet [facility] ([facility]) Insurance Providers Payer name Policy type / Coverage type Policy ID Covered constitution party ID Covered constitution party's relationship to smith Policy Smith Plan Information Hesham Rojo () Workers Compensation [id number] Self [id number] [employer] () Workers Compensation [id number] Self [id number] [place] Self () Workers Compensation [id number] Self [id number] [facility] Self () Workers Compensation [id number] Self [id number] Medicaid S [id number] S [id number] [facility] Community Plan Commercial [id number] Self [id number] Managed Care - Community Plan [facility] P [id number] S [id number] Medicaid S [id number] S [id number] Managed Care - Community Plan [facility] P [id number] S [id number] Managed Care - Community Plan [facility] P [id number] S [id number] Managed Care - Community Plan [facility] P [id number] S [id number] Managed Care - [facility] Community Plan P [id number] S [id number] Medicaid P [id number] S [id number] Medicaid S [id number] S [id number] Managed Care - P P [id number] S [id number] [employer] COMMUNITY PLAN [facility] [id number] SP [id number] MEDICAID UNAVAILABLE SP UNAVAILA BLE Medicaid [place] Medigap Part B [id number] Self [id number] [facility] COMMUNITY PLAN XIX [id number] 18 [id number] [facility] [id number] SP [id number] MEDICAID [id number] SP [id number] [facility] Community Plan Health Maintenance Organization (HMO) [id number] Self SELF PAY UNAVAILABLE SP UNAVAILA BLE [facility](MCAID) O [id number] S [id number] [facility] [id number] SP [id number] [facility] HEALTH CARE O [id number] S [id number] SELF PAY ONLY [id number] SP [id number] SP [id number] EMEDNY [id number] SP [id number] Managed Care - [facility] P [id number] S [id number] MEDICAID [id number] SP [id number] UN COMMUNITY PLAN MCDO [id number] SP [id number] [facility](MCAID) O [id number] S [id number] UN COMMUNITY PLAN [facility] [id number] SP [id number] Managed Care - Community Plan [facility] P [id number] S [id number] [facility] [id number] SP [id number] [facility] COMMUNITY PL[facility] [id number] SP [id number] [facility] EZEKIEL [id number] SP [id number] [facility] EZEKIEL [id number] SP [id number] Problems, Conditions, and Diagnoses Code Display Name Description Problem Type Effective Dates Data Source(s) 42101092 Allergic rhinitis Allergic Rhinitis Problem 03/27/2020 12:00:00 AM BRIDGETTE ZAVALA ([facility]) 719.41 Pain in right shoulder Pain in right shoulder 03/05/2020 01:36:04 PM EDT [facility] V85.24 BMI 28.0-28.9 BMI 28.0-28.9 03/05/2020 01:36:04 PM EDT [facility] 278.02 Overweight Overweight 03/05/2020 01:36:04 PM ED T [facility] F43.23 Adjustment disorder with mixed anxiety a nd depressed mood Adjustment Disorder, With mixed anxiety and depressed mood Condition 2019 12:00:00 AM EDT [facility] ([facility]) [id number] Mass of oral cavity Mass of Oral Cavity Problem 0 05/18/2017 12:00:00 AM EST - 03/27/2020 12:00:00 AM BRIDGETTE ZAVALA ([facility]) [id number] Lower urinary tract finding Lower Urinary Tract Findin g Problem 03/09/2017 12:00:00 AM EDT - 03/27/2020 12:00:00 AM BRIDGETTE ZAVALA ([facility]) [id number] Acquired absence of multiple teeth Acquired Abse nce of Multiple Teeth Problem 07/30/2015 12:00:00 AM EDT - 03/27/2020 12:00:00 AM BRADLY ZAVALA ([facility]) Surgeries/Procedures Procedure Description Date Indications Data Source(s) ARTHROCENTESIS ASPIR&/INJECTION MAJOR JT/BURSA 021 12:00:00 AM EST [facility] ([facility]) RADEX SHOULDER COMPLETE MINIMUM 2 VIEWS 03/27/2020 12: 00:00 AM EST [facility] ([facility]) MAMMO, diagnostic, digital, bilateral 03/27/2020 12:00 :00 AM EST SALLY ([facility]) Extended Individual Psychotherapy - 45 min 02/13/2020 12:00:00 AM EDT - 02/13/2020 12:00:00 AM EDT [facility] ([facility]) Extended Individual Psychotherapy - 45 min 0 12:00:00 AM EDT [facility] ([facility]) Extended Individual Psychotherapy - 45 min 02/02/2020 12:00:00 AM EDT - 02/02/2020 12:00:00 AM EDT [facility] ([facility]) Extended Individual Psychotherapy - 45 min 0 12:00:00 AM EDT [facility] ([facility]) Results ID Date Data Source [id number] 04/29/2020 12:00:00 AM EST [facility] Name Value Range Interpretation Code Description Data Elda rce(s) Supporting Document(s) SARS coronavirus 2 RNA [Presence] in Res piratory specimen by ELINOR with probe detection [facility] This lab was ordered by Don Paulson and reported by [email or web address]. ID Date Data Source [id number] 02/28/2020 01:44:32 PM EDT [facility] Measurements & CalculationsHeight: 66 inches (5 [...] (ER) or urgent care clinic? Yes - [facility] ER (for meds)Emergency room (ER) or urgent [...] Medical History:Herniated DiscsDegenerative DiscsAsthmaADHDNeuropathyCarpal tunnel syndromeAnxietyDepressionGERDHiatal HerniaSurgical History:w-lejcdii-[id number] removal-1994Family History:mother- COPD,emphysemia, high cholesterol, hypertensionFather-lung cancer, [...] during this visit, including review of any ijrx-lsv-jzkpfid medications, herbal therapies, and/or supplements.Allergy ReviewAllergy List [...] Problems:Added: Overweight (ICD-278.02) (ICD10- E66.3)BMI 28.0-28.9 (ICD-V85.24) (XDK13-K31.28)Pain in right shoulder (ICD- 719.41) (NZP99-X30.511) Assessment: chronic and ongoing. has had PT in the past. would like to see ortho. referral started.Assessed:Mixed anxiety and depressive disorder (ICD-300.4) (KDP98-C45.8) Assessment: refer to mental health in house. can restart wellbutrin per patient request. discussed risks, benegits, and side effects of medication. discussed supportive care. discussed signs and symptoms that would warrant ED eval.Assessment not SavedNeuropathic pain (RYW75-K10.2): Medications:WELLBUTRIN XL 150 MG ORAL TABLET EXTENDED [...] GLUTEN (Critical)* CATS (Sever e)Orders:Mental Health Consult [CPT-03345] Orthopaedics Consult [CPT-09233] Adult - Ofc Vst, EST, Level III [CPT-80290] Follow-Up Return to clinic: if symptoms persist Medications:WELLBUTRIN XL 150 MG ORAL TABLET EXTENDED RELEASE 24 HOUR (BUPROPION HCL) 1 tablet once a day in the morning #30[Tablet] x 1 Route:ORAL Entered and Authorized by: Janessa FLOWERS Method used: Electronically to [facility]* (retail) [address] [place] [address] Fax: Note to Pharmacy: Route: ORAL; RxID: [id number] 7.5 MG ORAL TABLET (MELOXICAM) 1 tablet twice a day as needed for pain with food #60[Tablet] x 1 Route:ORAL Entered and Authorized by: Janessa FLOWERS Method used: Electronically to [facility]* (retail) [address] [place] [address] Note to Pharmacy: Route: ORAL; RxID: [id number] 108 (90 BASE) MCG/ACT INHALATION AEROSOL SOLUTION (ALBUTEROL SULFATE) two puffs every 4 to 6 hours as needed #1[Inhalation] x 0 Route:INHALATION Entered and Authorized by: Janessa FLOWERS Method used: Electronically to [facility]* (retail) [address] [place] [address] Note to Pharmacy: Route: INH; RxID: [id number] signed by Janessa FLOWERS on 03/05/2020 at 1:36 PM Name Value Range Interpretation Code Description Data Elda rce(s) Supporting Document(s) Procedure Social History Code Duration Value Status Description Data Source(s ) Smoking 02/13/2020 12:00:00 AM EDT Unknown if ever smoked comp leted Unknown if ever smoked [facility] ([facility]) Smoking 02/02/2020 12:00:00 AM EDT Unknown if ever smoked comp leted Unknown if ever smoked [facility] ([facility]) Vital Signs ID Date Data Source UNK Name Value Range Interpretation Code Description Data Source(s) Body mass index (BMI) [Ratio] 31.3 kg/m2 31.3 k g/m2 [facility] ([facility] Body temperature 96.9 [degF] 96.9 [degF] [facility] ([facility] Body height 62.5 [in_i] 62.5 [in_i] [facility] ([facility]) 5'2.50" Body weight 174.12 [lb_av] 174.12 [lb_av] MEDEN T ([facility] ) Diastolic blood pressure 98 mm[Hg] 98 mm[Hg] SALLY ([facility]) Body height 65.25 [in_i] 65.25 [in_i] [facility] ([facility]) Body mass index (BMI) [Ratio] 29.3 kg/m2 29.3 k g/m2 [facility] ([facility]) Systolic blood pressure 148 mm[Hg] 148 mm[Hg] A THENA ([facility]) Body weight 2836 [oz_av] 2836 [oz_av] [facility] ([facility]) Patient Treatment Plan of Care Planned Activity Planned Date Details Description Data Source (s) 24 HR venlafaxine 75 MG Extended Release Oral Capsule [facility] ([facility]) Trazodone Hydrochloride 100 MG Oral Tablet [facility] ([facility]) Pramipexole dihydrochloride 0.5 MG Oral Tablet [facility] ([facility]) paroxetine 10 mg tablet TAKE ONE TABLET BY MOUTH EVERY DAY [facility] ([facility]) meloxicam 7.5 MG Oral Tablet [facility] ([facility]) gabapentin 600 MG Oral Tablet [facility] ([facility]) gabapentin 300 MG Oral Capsule [facility] ([facility]) Escitalopram 20 MG Oral Tablet [facility] ([facility]) Escitalopram 10 MG Oral Tablet [facility] ([facility]) 12 HR Bupropion Hydrochloride 200 MG Extended Release Oral Tablet [facility] ([facility])
== END 2021-03-19 05:11 | disposition left against medical advice (07) ==
LOC: M ED 03:20
DX: Z53.21 Procedure and treatment not carried out due to patient leaving prior to being seen by health care provider (principal)

== ENCOUNTER 2022-07-05 15:43 | Emergency (ER) | payer OTHER ==
[~2022-07-05] VITALS: Ht 162.6 cm; Wt 84.1 kg
[~2022-07-05 15:43] MED LIST changes: +LIDO15SO4 MT; -LIDO2SOL17 MT
[2022-07-05] MEDS ORDERED: MORPHINE 10 MG/ML 1ML VIAL IM ONE (16:20)
[2022-07-05 17:31] VITALS: BP 130/78
[2022-07-05] MEDS ORDERED: HYDR-3713 PO (17:43)
== END 2022-07-05 17:57 | disposition home or self-care (01) ==
LOC: M ED 15:43
DX: S80.911A Unspecified superficial injury of right knee, initial encounter (principal); J45.909 Unspecified asthma, uncomplicated; K21.9 Gastro-esophageal reflux disease without esophagitis; F17.200 Nicotine dependence, unspecified, uncomplicated; Z88.0 Allergy status to penicillin; Z88.5 Allergy status to narcotic agent; Z88.8 Allergy status to other drugs, medicaments and biological substances; Y92.009 Unspecified place in unspecified non-institutional (private) residence as the place of occurrence of the external cause; Z79.51 Long term (current) use of inhaled steroids; Z79.52 Long term (current) use of systemic steroids
CPT/HCPCS: 73564; 96372; 99284; J2270

== ENCOUNTER → 2022-07-07 | Outpatient (CLI) | payer OTHER ==
[~2022-07-07] MED LIST changes: +HYDR-3713 PO
== END ==
LOC: M PLAIMG 07:27
PROVIDERS: ATTEND Physician Assistant Surgical
DX: M47.895 Other spondylosis, thoracolumbar region (principal)

== ENCOUNTER → 2022-10-07 | Outpatient (REF) | payer OTHER ==
[~2022-10-07] MED LIST changes: +LIDO15SO MT; -LIDO15SO4 MT
[2022-10-07 18:23] LABS: HEMATOCRIT 37.4 % (36.0-47.0); HEMOGLOBIN 11.8 g/dl (12.0-15.5); MEAN CORPUSCULAR HEMOGLOBIN 29.1 pg (27.0-33.0); MEAN CORPUSCULAR HGB CONC 31.6 g/dl (32.0-36.5); MEAN CORPUSCULAR VOLUME 92.3 fl (80.0-96.0); PLATELET COUNT, AUTOMATED 228 10^3/uL (150-450); RED BLOOD COUNT 4.05 10^6/uL (4.00-5.40); WHITE BLOOD COUNT 7.7 10^3/uL (4.0-10.0)
[2022-10-07 18:24] LABS: ALBUMIN 3.2 G/DL (3.2-5.2); ALKALINE PHOSPHATASE 56 U/L (46-116); ALT/SGPT 15 U/L (7.0-40); AST/SGOT 19 U/L (<34); BILIRUBIN,TOTAL 0.2 MG/DL (0.3-1.2); BLOOD UREA NITROGEN 12 MG/DL (9-23); CALCIUM LEVEL 9.3 MG/DL (8.5-10.1); CARBON DIOXIDE LEVEL 32 MMOL/L (20-31); CHLORIDE LEVEL 103 MMOL/L (98-107); CREATININE FOR GFR 0.76 MG/DL (0.55-1.30); GLOMERULAR FILTRATION RATE > 60.0 (>58); GLUCOSE, FASTING 88 MG/DL (60-100); POTASSIUM SERUM 4.4 MMOL/L (3.5-5.1); SODIUM LEVEL 140 MMOL/L (136-145); TOTAL PROTEIN 6.3 G/DL (5.7-8.2)
[2022-10-07 18:36] LABS: HEPATITIS B SURFACE ANTIGEN NEGATIVE (NEGATIVE)
[2022-10-07 18:49] LABS: HIV 1&2 SCREEN NEGATIVE (NEGATIVE)
[2022-10-07 21:00] LABS: GC DNA AMPLIFICATION NEGATIVE (NEGATIVE)
== END ==
LOC: M LAB REF 16:45
PROVIDERS: ATTEND Family Medicine
DX: F11.20 Opioid dependence, uncomplicated (principal)

== ENCOUNTER 2023-09-16 13:26 | Emergency (ER) | payer OTHER ==
[~2023-09-16] VITALS: Ht 162.6 cm; Wt 91.7 kg
[~2023-09-16 13:26] MED LIST changes: +BUPR-597 PO; -BUPR300T92 PO; -LIDO15SO MT; +LIDO15SO8 MT
[2023-09-16] MEDS ORDERED: LEXA1TAB2 PO (13:33)
[2023-09-16] MEDS ORDERED: WELL100T2 PO (13:33)
[2023-09-16] MEDS ORDERED: KETOROLAC 30 MG/ML 1ML VIAL IV ONE (16:10)
[2023-09-16] MEDS: ACETAMINOPHEN 500 MG TAB PO ONE (16:31)
[2023-09-16] MEDS: KETOROLAC 30 MG/ML 1ML VIAL IM ONE (16:32)
[2023-09-16] MEDS ORDERED: MELO7.5T35 PO (16:41)
[2023-09-16 17:00] VITALS: BP 170/87; TEMP 97.1; O2SAT 100
== END 2023-09-16 17:05 | disposition home or self-care (01) ==
LOC: M ED 13:26
DX: M25.562 Pain in left knee (principal); M25.552 Pain in left hip; W19.XXXA Unspecified fall, initial encounter; Y92.009 Unspecified place in unspecified non-institutional (private) residence as the place of occurrence of the external cause; Y93.89 Activity, other specified; Y99.9 Unspecified external cause status; Z88.0 Allergy status to penicillin; Z88.5 Allergy status to narcotic agent; Z88.8 Allergy status to other drugs, medicaments and biological substances; Z79.1 Long term (current) use of non-steroidal anti-inflammatories (NSAID); Z79.52 Long term (current) use of systemic steroids; Z79.899 Other long term (current) drug therapy
CPT/HCPCS: 96372; 99283; J1885

== ENCOUNTER 2023-11-27 18:27 | Emergency (ER) | payer MEDICAID, OTHER, SELFPAY ==
[~2023-11-27] VITALS: Ht 162.6 cm; Wt 91.3 kg
[~2023-11-27 18:27] MED LIST changes: +LEXA1TAB2 PO; +WELL100T2 PO
[2023-11-27] MEDS: KETOROLAC 30 MG/ML 1ML VIAL IV ONE (21:40)
[2023-11-27 22:23] LABS: BASO # 0.1 10^3/uL (0.0-0.2); BASO % 0.7 % (0.0-1.0); EOS # 0.3 10^3/uL (0.0-0.5); EOS % 3.8 % (0.0-3.0); HEMATOCRIT 32.8 % (36.0-47.0); HEMOGLOBIN 10.7 g/dl (12.0-15.5); LYMPH # 1.1 10^3/uL (1.5-5.0); LYMPH % 15.3 % (24.0-44.0); MEAN CORPUSCULAR HEMOGLOBIN 30.3 pg (27.0-33.0); MEAN CORPUSCULAR HGB CONC 32.6 g/dl (32.0-36.5); MEAN CORPUSCULAR VOLUME 92.9 fl (80.0-96.0); MONO # 0.6 10^3/uL (0.0-0.8); MONO % 8.2 % (2.0-8.0); NEUTROPHILS % 71.7 % (36.0-66.0); PLATELET COUNT, AUTOMATED 197 10^3/uL (150-450); RED BLOOD COUNT 3.53 10^6/uL (4.00-5.40); WHITE BLOOD COUNT 6.9 10^3/uL (4.0-10.0)
[2023-11-27] MEDS: NS 1,000 ML IV ONE (22:26)
[2023-11-27 22:31] VITALS: BP 158/74; TEMP 99.3; O2SAT 99
[2023-11-27 22:41] LABS: INR 1.04; PARTIAL THROMBOPLASTIN TIME 24.8 SECONDS (24.8-34.2); PROTHROMBIN TIME 13.3 SECONDS (12.5-14.5)
[2023-11-27 22:56] LABS: ETHYL ALCOHOL (ETHANOL) 0.003 % (0.000-0.010); LIPASE 22 U/L (12-53)
[2023-11-27 22:57] LABS: AMYLASE 36 U/L (30-118)
[2023-11-27 22:58] LABS: ALBUMIN 3.7 G/DL (3.2-5.2); ALKALINE PHOSPHATASE 68 U/L (46-116); ALT/SGPT 19 U/L (7.0-40); AST/SGOT 19 U/L (<34); BILIRUBIN,DIRECT 0.2 MG/DL (<0.4); BILIRUBIN,TOTAL 0.5 MG/DL (0.3-1.2); BLOOD UREA NITROGEN 20 MG/DL (9-23); CALCIUM LEVEL 9.3 MG/DL (8.5-10.1); CARBON DIOXIDE LEVEL 30 MMOL/L (20-31); CHLORIDE LEVEL 105 MMOL/L (98-107); CREATININE FOR GFR 0.98 MG/DL (0.55-1.30); GLOMERULAR FILTRATION RATE > 60.0 (>51); GLUCOSE, FASTING 87 MG/DL (60-100); POTASSIUM SERUM 3.2 MMOL/L (3.5-5.1); SALICYLATE LEVEL < 3.0 MG/DL (<30); SODIUM LEVEL 139 MMOL/L (136-145); TOTAL PROTEIN 6.6 G/DL (5.7-8.2)
== END 2023-11-27 22:15 | disposition left against medical advice (07) ==
LOC: M ED 18:27
DX: B34.8 Other viral infections of unspecified site (principal); M25.552 Pain in left hip; M54.50 Low back pain, unspecified; K27.9 Peptic ulcer, site unspecified, unspecified as acute or chronic, without hemorrhage or perforation; J45.909 Unspecified asthma, uncomplicated; F90.9 Attention-deficit hyperactivity disorder, unspecified type; Z88.0 Allergy status to penicillin; Z88.5 Allergy status to narcotic agent; Z88.8 Allergy status to other drugs, medicaments and biological substances; Z79.52 Long term (current) use of systemic steroids; Z79.899 Other long term (current) drug therapy; Z53.9 Procedure and treatment not carried out, unspecified reason
CPT/HCPCS: 71046; 73502; 80048; 80076; 80143; 82077; 82150; 83605; 83690; 83735; 85025; 85610; 85730; 87486; 87581; 87633; 87798; 87880; 93005; 93041; 96374; 99284; J1885

== ENCOUNTER → 2024-06-29 | Outpatient (CLI) | payer OTHER ==
[~2024-06-29] MED LIST changes: +GABA-1172 PO; +GABA-1490; +GABA-1490 PO; -GABA-282 PO; -GABA600T4; -GABA600T4 PO; +PROHANCE 279.3MG/ML 15ML VIAL As Ordered ONE; +PROHANCE 279.3MG/ML 5ML VIAL As Ordered ONE
== END ==
LOC: M RAD 08:31
PROVIDERS: ATTEND Internal Medicine Addiction Medicine
DX: Z12.89 Encounter for screening for malignant neoplasm of other sites (principal); M25.461 Effusion, right knee; M25.451 Effusion, right hip; M70.61 Trochanteric bursitis, right hip
CPT/HCPCS: 73720; A9576

== ENCOUNTER 2024-08-30 17:25 | Emergency (ER) | payer OTHER ==
[~2024-08-30] VITALS: Ht 165.1 cm; Wt 98.0 kg
[~2024-08-30 17:25] MED LIST changes: -BUPR-597 PO; +BUPR-766 PO; -BUPR1TAB56 PO; +BUPR200T45 PO; -PROHANCE 279.3MG/ML 15ML VIAL As Ordered ONE; -PROHANCE 279.3MG/ML 5ML VIAL As Ordered ONE
[2024-08-30 18:18] LABS: BASO # 0.1 10^3/uL (0.0-0.2); BASO % 0.7 % (0.0-1.0); EOS # 0.1 10^3/uL (0.0-0.5); HEMATOCRIT 42.6 % (36.0-47.0); HEMOGLOBIN 13.5 g/dl (12.0-15.5); LYMPH # 1.9 10^3/uL (1.5-5.0); LYMPH % 19.5 % (24.0-44.0); MEAN CORPUSCULAR HEMOGLOBIN 28.8 pg (27.0-33.0); MEAN CORPUSCULAR HGB CONC 31.7 g/dl (32.0-36.5); MEAN CORPUSCULAR VOLUME 90.8 fl (80.0-96.0); MONO # 0.7 10^3/uL (0.0-0.8); MONO % 6.7 % (2.0-8.0); NEUTROPHILS % 71.7 % (36.0-66.0); PLATELET COUNT, AUTOMATED 331 10^3/uL (150-450); RED BLOOD COUNT 4.69 10^6/uL (4.00-5.40); WHITE BLOOD COUNT 9.8 10^3/uL (4.0-10.0)
[2024-08-30 18:42] LABS: ETHYL ALCOHOL (ETHANOL) 0.004 % (0.000-0.010)
[2024-08-30 18:44] LABS: ALBUMIN 3.7 G/DL (3.2-5.2); ALKALINE PHOSPHATASE 75 U/L (35-104); ALT/SGPT 17 U/L (7.0-40); AST/SGOT 13 U/L (<34); BILIRUBIN,DIRECT 0.1 MG/DL (<0.4); BILIRUBIN,TOTAL 0.4 MG/DL (0.3-1.2); BLOOD UREA NITROGEN 13 MG/DL (9-23); CALCIUM LEVEL 10.2 MG/DL (8.5-10.1); CARBON DIOXIDE LEVEL 29 MMOL/L (20-31); CHLORIDE LEVEL 104 MMOL/L (98-107); CREATININE FOR GFR 0.99 MG/DL (0.55-1.30); GLOMERULAR FILTRATION RATE 69.5 (>51); GLUCOSE, FASTING 114 MG/DL (60-100); POTASSIUM SERUM 3.9 MMOL/L (3.5-5.1); SALICYLATE LEVEL < 3.0 MG/DL (<30); SODIUM LEVEL 142 MMOL/L (136-145); TOTAL PROTEIN 7.6 G/DL (5.7-8.2)
[2024-08-30 18:46] LABS: THYROID STIMULATING HORMONE 0.172 uIU/ML (0.55-4.78)
[2024-08-30 19:05] LABS: CANNABINOIDS URINE NEGATIVE (NEGATIVE); METHADONE URINE NEGATIVE (NEGATIVE); PHENCYCLIDINE URINE NEGATIVE (NEGATIVE)
[2024-08-30 19:06] LABS: AMPHETAMINES LEVEL URINE POSITIVE (NEGATIVE); BARBITURATES URINE NEGATIVE (NEGATIVE); BENZODIAZEPINES URINE NEGATIVE (NEGATIVE); COCAINE METABOLITE URINE NEGATIVE (NEGATIVE); OPIATES URINE POSITIVE (NEGATIVE)
[2024-08-30 20:23] VITALS: BP 106/64; TEMP 98; O2SAT 96
[2024-09-04] MEDS ORDERED: GABA-1171 PO (07:48)
[2024-09-04] MEDS ORDERED: BUPR8SUB PO (07:48)
[2024-09-04] MEDS ORDERED: CELE0.09 PO (07:48)
[2024-09-04] MEDS ORDERED: METH-1164 PO (07:48)
[2024-09-04] MEDS ORDERED: ZOLO100T PO (13:40)
[2024-09-04] MEDS ORDERED: PRAZ2CAP40 PO (13:40)
[2024-09-04] MEDS ORDERED: BUSP10TA79 PO (13:40)
[2024-09-04] MEDS ORDERED: TRAZ-257 PO (13:40)
[2024-09-04] MEDS ORDERED: VENTAER INH (13:42)
== END 2024-08-30 23:06 | disposition left against medical advice (07) ==
LOC: M ED 17:25
DX: Z53.21 Procedure and treatment not carried out due to patient leaving prior to being seen by health care provider (principal)

== ENCOUNTER 2024-09-03 08:04 | Emergency (ER) | payer OTHER ==
[~2024-09-03] VITALS: Ht 165.1 cm; Wt 97.6 kg
[~2024-09-03 08:04] MED LIST changes: +BUPR-597 PO; -BUPR-766 PO; +BUPR1TAB56 PO; -BUPR200T45 PO
[2024-09-03 08:07] VITALS: BP 158/86; TEMP 96.6; O2SAT 98
[2024-09-03 09:10] LABS: HEMATOCRIT 40.1 % (36.0-47.0); MEAN CORPUSCULAR HEMOGLOBIN 29.1 pg (27.0-33.0); MEAN CORPUSCULAR HGB CONC 32.4 g/dl (32.0-36.5); MEAN CORPUSCULAR VOLUME 89.7 fl (80.0-96.0); PLATELET COUNT, AUTOMATED 304 10^3/uL (150-450); RED BLOOD COUNT 4.47 10^6/uL (4.00-5.40); WHITE BLOOD COUNT 9.2 10^3/uL (4.0-10.0)
[2024-09-03 09:16] LABS: ERYTHROCYTE SEDIMENTATION RATE 39 mm/hr (0-30)
[2024-09-03 09:21] LABS: INR 0.94; PARTIAL THROMBOPLASTIN TIME 26.7 SECONDS (24.8-34.2); PROTHROMBIN TIME 12.9 SECONDS (12.5-14.5)
[2024-09-03 09:30] LABS: ATYPICAL LYMPH 10 % (0-5); BASOPHILS 2 % (0-1); EOSINOPHILS 2 % (0-3); LYMPHOCYTES 19 % (16-44); MONOCYTES 4 % (0-5); NEUTROPHILS 63 % (28-66)
[2024-09-03 09:31] LABS: PLATELET ESTIMATE NORMAL (NORMAL)
[2024-09-03 09:34] LABS: ALBUMIN 3.8 G/DL (3.2-5.2); ALKALINE PHOSPHATASE 74 U/L (35-104); ALT/SGPT 27 U/L (7.0-40); AST/SGOT 21 U/L (<34); BILIRUBIN,DIRECT 0.1 MG/DL (<0.4); BILIRUBIN,TOTAL 0.3 MG/DL (0.3-1.2); BLOOD UREA NITROGEN 23 MG/DL (9-23); C REACTIVE PROTEIN QUANTITATIV < 0.50 MG/DL (<1.0); CALCIUM LEVEL 10.2 MG/DL (8.5-10.1); CARBON DIOXIDE LEVEL 28 MMOL/L (20-31); CHLORIDE LEVEL 102 MMOL/L (98-107); CREATININE FOR GFR 1.04 MG/DL (0.55-1.30); GLOMERULAR FILTRATION RATE 65.5 (>51); GLUCOSE, FASTING 101 MG/DL (60-100); POTASSIUM SERUM 4.1 MMOL/L (3.5-5.1); SODIUM LEVEL 140 MMOL/L (136-145); TOTAL PROTEIN 7.5 G/DL (5.7-8.2)
[2024-09-04] MEDS ORDERED: METH-1164 PO (07:48)
[2024-09-04] MEDS ORDERED: BUPR8SUB PO (07:48)
[2024-09-04] MEDS ORDERED: GABA-1171 PO (07:48)
[2024-09-04] MEDS ORDERED: CELE0.09 PO (07:48)
[2024-09-04] MEDS ORDERED: PRAZ2CAP40 PO (13:40)
[2024-09-04] MEDS ORDERED: TRAZ-257 PO (13:40)
[2024-09-04] MEDS ORDERED: BUSP10TA79 PO (13:40)
[2024-09-04] MEDS ORDERED: ZOLO100T PO (13:40)
[2024-09-04] MEDS ORDERED: VENTAER INH (13:42)
== END 2024-09-03 10:11 | disposition home or self-care (01) ==
LOC: M ED 08:04
DX: M25.562 Pain in left knee (principal); M71.22 Synovial cyst of popliteal space [Baker], left knee; Z91.048 Other nonmedicinal substance allergy status; Z88.0 Allergy status to penicillin; Z88.6 Allergy status to analgesic agent; Z88.5 Allergy status to narcotic agent; Z79.51 Long term (current) use of inhaled steroids; Z79.899 Other long term (current) drug therapy; Z79.1 Long term (current) use of non-steroidal anti-inflammatories (NSAID)

== ENCOUNTER → 2024-09-18 | Outpatient (CLI) | payer OTHER ==
[~2024-09-18] MED LIST changes: -BUPR-597 PO; +BUPR-766 PO; -BUPR1TAB56 PO; +BUPR200T45 PO; +BUPR8SUB PO; +BUSP10TA79 PO; +CELE0.09 PO; +GABA-1171 PO; +METH-1164 PO; +PRAZ2CAP40 PO; +TRAZ-257 PO; +ZOLO100T PO
== END ==
LOC: M SOG 13:41
PROVIDERS: ATTEND Physician Assistant
DX: M25.562 Pain in left knee (principal)

== ENCOUNTER → 2025-03-06 | Outpatient (CLI) | payer OTHER ==
[~2025-03-06] MED LIST changes: -IBUP-1022 PO; +IBUP600T42 PO; +ZYRTTAB8 PO
== END ==
LOC: M SOG 07:19
PROVIDERS: ATTEND Orthopaedic Surgery
DX: M25.511 Pain in right shoulder (principal)

== ENCOUNTER → 2025-04-19 | Outpatient (CLI) | payer OTHER | LOC: M PLARAD 10:01 | PROVIDERS: ATTEND Orthopaedic Surgery | DX: M25.511 Pain in right shoulder (principal); M75.121 Complete rotator cuff tear or rupture of right shoulder, not specified as traumatic; M25.411 Effusion, right shoulder; M62.521 Muscle wasting and atrophy, not elsewhere classified, right upper arm ==

== ENCOUNTER → 2025-05-08 | Outpatient (REF) | payer OTHER, MEDICAID ==
[2025-05-08 16:27] LABS: BASO # 0.1 10^3/uL (0.0-0.2); BASO % 0.9 % (0.0-1.0); EOS # 0.1 10^3/uL (0.0-0.5); EOS % 1.5 % (0.0-3.0); LYMPH # 2.2 10^3/uL (1.5-5.0); LYMPH % 27.3 % (24.0-44.0); MONO # 0.7 10^3/uL (0.0-0.8); MONO % 8.4 % (2.0-8.0); NEUTROPHILS # 5.1 10^3/uL (1.5-8.5); NEUTROPHILS % 61.7 % (36.0-66.0); PLATELET COUNT, AUTOMATED 320 10^3/uL (150-450)
[2025-05-08 16:49] LABS: ALT/SGPT 15 U/L (7.0-40); AST/SGOT 19 U/L (<34); CALCIUM LEVEL 9.8 MG/DL (8.5-10.1); CARBON DIOXIDE LEVEL 30 MMOL/L (20-31); CHLORIDE LEVEL 102 MMOL/L (98-107); CHOLESTEROL LEVEL 252 MG/DL (<200); CHOLESTEROL RISK RATIO 2.54 (<5); CREATININE FOR GFR 1.10 MG/DL (0.55-1.30); GLOMERULAR FILTRATION RATE 60.8 (>51); LDL CHOLESTEROL 131.0 MG/DL (<100); NON-HDL-C 153.0 MG/DL; POTASSIUM SERUM 4.2 MMOL/L (3.5-5.1); SODIUM LEVEL 141 MMOL/L (136-145); TRIGLYCERIDES LEVEL 110 MG/DL (<150)
[2025-05-08 17:00] LABS: ESTIMATED AVERAGE GLUCOSE 97.0 MG/DL (60-110)
== END ==
LOC: M LAB REF 15:56
PROVIDERS: ATTEND Nurse Practitioner Family
DX: E66.9 Obesity, unspecified (principal); R53.83 Other fatigue; Z11.9 Encounter for screening for infectious and parasitic diseases, unspecified; F19.91 Other psychoactive substance use, unspecified, in remission